=== PATIENT | male | born 1950 | race Caucasian/White ===

== ENCOUNTER → 2019-08-16 | Outpatient (CLI) | payer MEDICARE, OTHER ==
--- NOTE | 2019-08-16 15:04 | XR ---
EXAMINATION TYPE: XR chest 2V DATE OF EXAM: 08/16/2019 COMPARISON: NONE TECHNIQUE: PA and lateral views submitted. HISTORY: Preop knee surgery FINDINGS: There is bibasilar subsegmental consolidation. Heart size is prominent. No overt failure or pneumotho rax. Degenerative change vertebral column with postsurgical change involving the thoracolumbar juncti on. Suggestion of previous vertebroplasty. IMPRESSION: 1. Bibasilar infiltrate or atelectasis.
== END | disposition home or self-care (01) ==
LOC: RADXRMAIN 14:19
PROVIDERS: ATTEND Orthopaedic Surgery
DX: Z01.810 Encounter for preprocedural cardiovascular examination (principal); Z01.812 Encounter for preprocedural laboratory examination
CPT/HCPCS: 71046

== ENCOUNTER → 2019-10-03 | Outpatient (CLI) | payer MEDICARE, OTHER ==
--- NOTE | 2019-10-03 14:19 | US ---
EXAMINATION TYPE: US venous doppler duplex LE RT DATE OF EXAM: 10/03/2019 1:44 PM COMPARISON: NONE CLINICAL HISTORY: R60.0 LOCALIZED EDEMA. Right leg pain following knee replacement 1 week ago SIDE PERFORMED: Right TECHNIQUE: The lower extremity deep venous system is examined utilizing real time linear array sonog lloyd with graded compression, doppler sonography and color-flow sonography. VESSELS IMAGED: External Iliac Vein (EIV) Common Femoral Vein Deep Femoral Vein Greater Saphenous Vein * Femoral Vein Popliteal Vein Small Saphenous Vein * Proximal Calf Veins (* superficial vessels) Grayscale, color doppler, spectral doppler imaging performed of the deep veins of the right lower ext remity. There is normal flow, compressibility, vascular waveforms. 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 No sonographic evidence of deep venous thrombosis within the right lower chimney. 2. Complex 4.8 cm right popliteal fossa cyst.
== END | disposition home or self-care (01) ==
LOC: RADUSWWP 12:47
PROVIDERS: ATTEND Orthopaedic Surgery
DX: R60.0 Localized edema (principal)

== ENCOUNTER → 2020-02-19 | Outpatient (CLI) | payer MEDICARE, OTHER ==
[2020-02-19 11:13] LABS: Basophils % (A) 1 %; Eosinophils # (A) 0.1 k/uL (0-0.7); Eosinophils % (A) 2 %; HCT 48.6 % (39.0-53.0); HGB 15.6 gm/dL (13.0-17.5); Lymphocytes # (A) 0.9 k/uL (1.0-4.8); Lymphocytes % (A) 17 %; MCH 31.1 pg (25.0-35.0); MCV 97.1 fL (80.0-100.0); Monocytes # (A) 0.3 k/uL (0-1.0); Monocytes % (A) 6 %; Neutrophils # (A) 3.7 k/uL (1.3-7.7); Neutrophils % (A) 73 %; Platelet Count 169 k/uL (150-450); RBC 5.01 m/uL (4.30-5.90); RDW 13.7 % (11.5-15.5); WBC 5.1 k/uL (3.8-10.6)
[2020-02-19 15:48] LABS: African American GFR (CKD) 105.6 (60.0-200.0); Albumin 4.5 g/dL (3.80-4.90); Albumin/Globulin Ratio 2.25 (1.60-3.17); Anion Gap 8.7 mmol/L (4.00-12.00); BUN/Creat Ratio 21.25 Ratio (12.00-20.00); Calcium 9.6 mg/dL (8.7-10.3); Carbon Dioxide 27.3 mmol/L (21.6-31.8); Chol/HDL Ratio 1.95; LDL Cholesterol,Calculated 45.8 mg/dL (0.0-131.0); Non-African American GFR(CKD) 91.1 (60.0-200.0); Potassium 4.5 mmol/L (3.5-5.5); Total Bilirubin 0.8 mg/dL (0.2-1.2); Total Protein 6.5 g/dL (6.2-8.2); VLDL Calculation 15.2 mg/dL (5.00-40.00)
== END | disposition home or self-care (01) ==
LOC: LABWHC1 10:45
PROVIDERS: ATTEND Physician Assistant
DX: I10 Essential (primary) hypertension (principal); E11.65 Type 2 diabetes mellitus with hyperglycemia; E78.2 Mixed hyperlipidemia; R97.20 Elevated prostate specific antigen [PSA]; E78.5 Hyperlipidemia, unspecified
CPT/HCPCS: 36415; 80053; 80061; 83036; 84153; 85025

== ENCOUNTER → 2020-10-13 | Outpatient (CLI) | payer MEDICARE, OTHER ==
--- NOTE | 2020-10-13 16:26 | MR ---
EXAMINATION TYPE: MR lumbar spine wo con DATE OF EXAM: 10/13/2020 COMPARISON: NONE HISTORY: Intervertebral disc degeneration per order. Low back pain for 2.5 years per patient. TECHNIQUE: Multiplanar, multisequence imaging of the lumbar spine is performed without IV contrast. FINDINGS: Sagittal images of the lumbar spine show artifact from vertebral plasty L2 level where ther e is [id number] height loss. There is artifact from posterior fusion hardware at the L1-L3 leve ls. Slight posterior 3 mm retropulsion of the superior L2 vertebra to the anterior spinal canal noted sagittal imaging for reference. There is slight grade 1 retrolisthesis L2 on L3, L3 on L4, and L4 an d L5. Multilevel disc desiccation. Moderate to advanced disc space narrowing L4-L5 level greatest lef t aspect. Mild to moderate multilevel anterior spurring The conus medullaris is normal in position an d the mid L1 level. The bone marrow signal intensity is within normal limits. Axial images at T12-L1 level show artifact from surgical hardware otherwise are unremarkable. Axial images at L1-L2 level are suboptimal due to more prominent artifact from surgical hardware. Axi al images L2-L3 level similar to the L1-L2 level. Axial images at the L3-L4 level show spondylolisthesis with mild/moderate facet arthropathy bilateral ly. There is some artifact from surgical hardware. There is mild/moderate lobulated broad disc bulge mildly effaces the anterior thecal sac. There is moderate right and mild left-sided inferior neural f oraminal narrowing. There is however left lateral recess narrowing due to eccentric herniation sagitt al image 7. Encroachment on the extraforaminal right L3 nerve difficulty exclude axial image 13 and s agittal image 13 along inferior margin. Axial images at the L4-L5 level shows subtle spondylolisthesis. There is moderate facet arthropathy a nd ligamentum flavum hypertrophy. There is left paracentral spur disc complex minimally effaces the a nterior thecal sac. There is moderate left and mild right-sided neural foraminal narrowing. Axial images of the L5-S1 level show moderate to advanced facet arthropathy bilaterally. There is eff acement of the left lateral thecal sac encroaching near the central left S1 nerve on axial image 4. T here is mild/moderate broad-based posterior disc protrusion with right foraminal disc protrusion comp onent encroaching along inferior margin right L5 nerve sagittal image 13. Left-sided neural foramina is patent. A round 1.2 cm hyperintense lesion left kidney measures 23 favor simple thin-walled cyst. IMPRESSION: Multilevel spondylolisthesis and degenerative changes greatest at L3-L4 through the L5-S1 levels as detailed above.
== END | disposition home or self-care (01) ==
LOC: RADMRIMAIN 12:50
PROVIDERS: ATTEND Neurological Surgery
DX: M43.16 Spondylolisthesis, lumbar region (principal); M43.17 Spondylolisthesis, lumbosacral region
CPT/HCPCS: 72148

== ENCOUNTER 2023-02-01 18:29 | Emergency (ER) | payer MEDICARE, OTHER ==
[2023-02-01] MEDS ORDERED: KETOROLAC 15 MG/ML 1 ML VIAL IVP STA (19:25)
[2023-02-01] MEDS ORDERED: ORPHENADRINE 30 MG/ML 2 ML VIAL IVP STA (19:25)
--- NOTE | 2023-02-01 20:01 | ED ---
Back Pain HPI - General Chief Complaint: Back Pain/Injury Stated Complaint: back pain Time Seen by Provider: 02/01/23 19:04 Source: patient, RN notes reviewed Limitations: no limitations - History of Present Illness Initial Comments: 72-year-old male presents emergency Department chief complaint of low back pain. Patient states she's had prior surgery including rods, fusion of his lumbar spine. Patient states he has an appointment with Dr. Slater coming up. Patient states pain and worsen her last week. He denies any bowel, bladder incontinence or retention. 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 Patient states blood sugar was mildly elevated today. He states that he has intermittent sharp stabbing type pain. Denies any weakness of his lower extremity but states it's worse with certain movements. - Related Data Home Medications Medication Instructions Recorded Confirmed Albuterol Inhaler [Ventolin Hfa 2 puff INHALATION RT-Q4H PRN 02/01/23 02/01/23 Inhaler] Albuterol Nebulized [Ventolin 2.5 mg INHALATION RT-Q6H PRN 02/01/23 02/01/23 Nebulized] Aspirin EC [Ecotrin] 325 mg PO HS 02/01/23 02/01/23 Atorvastatin [Lipitor] 40 mg PO HS 02/01/23 02/01/23 Butalbital/Aspirin/Caffeine 1 cap PO BID PRN 02/01/23 02/01/23 [Ylpgyqmszc-ADV-Zcbwvvvm Cap 50-325-40] Doxycycline Hyclate 100 mg PO BID 02/01/23 02/01/23 Finasteride [Proscar] 5 mg PO DAILY 02/01/23 02/01/23 Insulin Glargine,Hum.rec.anlog 6 - 20 units SQ HS 02/01/23 02/01/23 [Lantus Solostar Pen] Metoprolol Succinate (ER) [Toprol 50 mg PO DAILY 02/01/23 02/01/23 Xl] Montelukast [Singulair] 10 mg PO HS 02/01/23 02/01/23 Multivit-Min/FA/Lycopen/Lutein 1 tab PO DAILY 02/01/23 02/01/23 [Centrum Silver Men Tablet] Nitroglycerin Sl Tabs [Nitrostat] 0.4 mg SUBLINGUAL Q5M PRN 02/01/23 02/01/23 Tamsulosin [Flomax] 0.4 mg PO DAILY 02/01/23 02/01/23 Topiramate [Topamax] 25 mg PO DAILY 02/01/23 02/01/23 Zolpidem [Ambien] 5 mg PO HS PRN 02/01/23 02/01/23 lisinopriL [Prinivil] 20 mg PO HS 02/01/23 02/01/23 metFORMIN HCL ER [Glucophage XR] 500 mg PO BID 02/01/23 02/01/23 rOPINIRole HCL [Requip] 2 mg PO BID 02/01/23 02/01/23 rOPINIRole HCL [Requip] 2 mg PO HS PRN 02/01/23 02/01/23 traZODone HCL [Desyrel] 50 mg PO HS PRN 02/01/23 02/01/23 Previous Rx's Medication Instructions Recorded HYDROcodone/APAP 5-325MG [Hollis 5] 1 each PO Q6HR PRN #12 tab 02/01/23 Allergies Allergy/AdvReac Type Severity Reaction Status Date / Time No Known Allergies Allergy Verified 02/01/23 21:04 Review of Systems ROS Statement: Those systems with pertinent positive or pertinent negative responses have been documented in the HPI. ROS Other: All systems not noted in ROS Statement are negative. Past Medical History Past Medical History: Asthma, Coronary Artery Disease (CAD), Chest Pain / Angina, Hyperlipidemia, Hypertension Additional Past Medical History / Comment(s): partial left lung collaspe History of Any Multi-Drug Resistant Organisms: None Reported Past Surgical History: Heart Catheterization, Heart Catheterization With Stent, Joint Replacement, Orthopedic Surgery Additional Past Surgical History / Comment(s): lamenectomy, carpal tunnel, cat aracts Past Psychological History: No Psychological Hx Reported Smoking Status: Current every day smoker Past Alcohol Use History: None Reported Past Drug Use History: None Reported General Exam Limitations: no limitations General appearance: alert, in no apparent distress Head exam: Present: atraumatic, normocephalic, normal inspection Eye exam: Present: normal appearance, PERRL, EOMI. Absent: scleral icterus, conjunctival injection, periorbital swelling ENT exam: Present: normal exam, normal oropharynx, mucous membranes moist Neck exam: Present: normal inspection, full ROM. Absent: tenderness, meningismus, lymphadenopathy Respiratory exam: Present: normal lung sounds bilaterally. Absent: respiratory distress, wheezes, rales, rhonchi, stridor Cardiovascular Exam: Present: regular rate, normal rhythm, normal heart sounds. Absent: systolic murmur, diastolic murmur, rubs, gallop, clicks GI/Abdominal exam: Present: soft, normal bowel sounds. Absent: distended, tenderness, guarding, rebound, rigid Extremities exam: Present: normal inspection, full ROM, normal capillary refill, other (lower extremity pulses equal bilaterally). Absent: tenderness, pedal edema, joint swelling, calf tenderness Back exam: Present: tenderness, muscle spasm, paraspinal tenderness, vertebral tenderness. Absent: full ROM Neurological exam: Present: alert, oriented X3, CN II-XII intact, reflexes normal. Absent: motor sensory deficit Course Vital Signs 02/01/23 02/01/23 02/01/23 18:31 20:50 21:37 Temperature 98.4 F Pulse Rate 70 Respiratory 20 Rate Blood Pressure 190/100 160/100 129/82 O2 Sat by Pulse 96 Oximetry Medical Decision Making - Medical Decision Making Was pt. sent in by a medical professional or institution (, PA, HOT [employer]ER, urgent care, hospital, or halfway...) When possible be specific @ -No Did you speak to anyone other than the patient for history (EMS, parent, family, police, friend...)? What history was obtained from this source @ -No Did you review nursing and triage notes (agree or disagree)? Why? @ -I reviewed and agree with nursing and triage notes Were old charts reviewed (outside hosp., previous admission, EMS record, old EKG, old radiological studies, urgent care reports/EKG's, halfway records)? Report findings @ -No old charts were reviewed Differential Diagnosis (chest pain, altered mental status, abdominal pain women, abdominal pain men, vaginal bleeding, weakness, fever, dyspnea, syncope, headache, dizziness, GI bleed, back pain, seizure, CVA, palpatations, mental health, musculoskeletal)? @ -Differential Back Pain: Strain, zoster, cauda equina syndrome, epidural abscess, vertebral osteomyelitis, discitis, fracture, subluxation, disc herniation, DJD, spinal stenosis, dissection, AAA, pancreatitis, peptic ulcer disease, pyelonephritis, kidney stone, this is not meant to be an all-inclusive list. EKG interpreted by me (3pts min.). @ -None X-rays interpreted by me (1pt min.). @ -X-ray lumbar spine shows postsurgical changes, degenerative changes noted, no acute fracture or osseous lesions CT interpreted by me (1pt min.). @ -None done U/S interpreted by me (1pt. min.). @ -None done What testing was considered but not performed or refused? (CT, X-rays, U/S, labs)? Why? @ -None What meds were considered but not given or refused? Why? @ -None Did you discuss the management of the patient with other professionals (professionals i.e. , PA, H[employer]ER, lab, RT, psych nurse, social work administrator, planning specialist, teacher, tactical debriefer officer, case advocate)? Give summary @ -No Was smoking cessation discussed for >3mins.? @ -No Was critical care preformed (if so, how long)? @ -No Were there social determinants of health that impacted care today? How? (Homelessness, low income, unemployed, alcoholism, drug addiction, transportation, low edu. Level, literacy, decrease access to med. care, alf, rehab)? @ -No Was there de-escalation of care discussed even if they declined (Discuss DNR or withdrawal of care, Hospice)? DNR status @ -No What co-morbidities impacted this encounter? (DM, HTN, Smoking, COPD, CAD, Cancer, CVA, ARF, Chemo, Hep., AIDS, mental health diagnosis, sleep apnea, morbid obesity)? @ -None Was patient admitted / discharged? Hospital course, mention meds given and route, prescriptions, significant lab abnormalities, going to OR and other pertinent info. @ -Discharge patient has lumbar The symptoms patient did have lab work which showed mild hyperglycemia no patient had recent cortisone injection patient's CRP was 4 not significantly elevated patient is afebrile patient's found to be hypertensive though patient was in a large amount of pain. Patient was discharged with pain control and follow-up with Dr. Slater as scheduled appointment or sooner return parameters were discussed Undiagnosed new problem with uncertain prognosis? @ -No Drug Therapy requiring intensive monitoring for toxicity (Heparin, Nitro, Insulin, Cardizem)? @ -No Were any procedures done? @ -No Diagnosis/symptom? @ -Lumbar radiculopathy Acute, or Chronic, or Acute on Chronic? @ -Acute on chronic Uncomplicated (without systemic symptoms) or Complicated (systemic symptoms)? @ -Uncomplicated Side effects of treatment? @ -No Exacerbation, Progression, or Severe Exacerbation? @ -No Poses a threat to life or bodily function? How? (Chest pain, [place], [place], pneumonia, PE, COPD, DKA, ARF, appy, cholecystitis, CVA, Diverticulitis, Homicidal, Suicidal, threat to staff... and all critical care pts) @ -No - Lab Data Result diagrams: 02/01/23 19:46 02/01/23 19:46 Lab Results 02/01/23 02/01/23 02/01/23 Range/Units 19:46 19:46 19:46 WBC 6.3 (3.8-10.6) k/uL RBC 4.87 (4.30-5.90) m/uL Hgb 16.0 (13.0-17.5) gm/dL Hct 48.0 (39.0-53.0) % MCV 98.5 (80.0-100.0) fL MCH 32.8 (25.0-35.0) pg MCHC 33.3 (31.0-37.0) g/dL RDW 12.6 (11.5-15.5) % Plt Count 189 (150-450) k/uL MPV 8.0 Neutrophils % 69 % Lymphocytes % 22 % Monocytes % 6 % Eosinophils % 2 % Basophils % 1 % Neutrophils # 4.3 (1.3-7.7) k/uL Lymphocytes # 1.4 (1.0-4.8) k/uL Monocytes # 0.4 (0-1.0) k/uL Eosinophils # 0.1 (0-0.7) k/uL Basophils # 0.0 (0-0.2) k/uL Sodium 139 (137-145) mmol/L Potassium 4.7 (3.5-5.1) mmol/L Chloride 107 (98-107) mmol/L Carbon Dioxide 25 (22-30) mmol/L Anion Gap 7 mmol/L BUN 18 (9-20) mg/dL Creatinine 0.74 (0.66-1.25) mg/dL Est GFR (CKD-EPI)AfAm >90 (>60 ml/min/1.73 sqM) Est GFR (CKD-EPI)NonAf >90 (>60 ml/min/1.73 sqM) Glucose 178 H (74-99) mg/dL Calcium 9.3 (8.4-10.2) mg/dL C-Reactive Protein 4.0 H (<1.0) mg/dL Urine Color Yellow Urine Appearance Clear (Clear) Urine pH 6.5 (5.0-8.0) Ur Specific [place] 1.022 (1.001-1.035) Urine Protein Negative (Negative) Urine Glucose (UA) 4+ H (Negative) Urine Ketones Negative (Negative) Urine Blood Negative (Negative) Urine Nitrite Negative (Negative) Urine Bilirubin Negative (Negative) Urine Urobilinogen 2.0 (<2.0) mg/dL Ur Leukocyte Esterase Negative (Negative) Disposition Clinical Impression: Lumbar radiculopathy Disposition: HOME SELF-CARE Condition: Stable Instructions (If sedation given, give patient instructions): Acute Low Back Pa in (ED) Additional Instructions: Please return to the Emergency Department if symptoms worsen or any other concerns. Prescriptions: HYDROcodone/APAP 5-325MG [Hollis 5] 1 each PO Q6HR PRN #12 tab PRN Reason: Pain Is patient prescribed a controlled substance at d/c from ED?: No Referrals: Nonstaff,Physician [REFERRING] - 1-2 days Gil Patel DO [Family Provider] - 1-2 days Time of Disposition: 22:03
[2023-02-01 20:04] LABS: Basophils % (A) 1 %; Eosinophils # (A) 0.1 k/uL (0-0.7); Eosinophils % (A) 2 %; Lymphocytes # (A) 1.4 k/uL (1.0-4.8); Lymphocytes % (A) 22 %; MCH 32.8 pg (25.0-35.0); MCHC 33.3 g/dL (31.0-37.0); MCV 98.5 fL (80.0-100.0); Monocytes # (A) 0.4 k/uL (0-1.0); Monocytes % (A) 6 %; Neutrophils # (A) 4.3 k/uL (1.3-7.7); Neutrophils % (A) 69 %; Platelet Count 189 k/uL (150-450); RBC 4.87 m/uL (4.30-5.90); RDW 12.6 % (11.5-15.5); WBC 6.3 k/uL (3.8-10.6)
[2023-02-01 20:07] LABS: Appearance,Urine Clear (Clear); Bilirubin,Urine Negative (Negative); Blood,Urine Negative (Negative); Color,Urine Yellow; Glucose,Urine (UA) 4+ (Negative); Ketones,Urine Negative (Negative); Leukocyte Esterase,Urine Negative (Negative); Nitrite,Urine Negative (Negative); PH, Urine 6.5 (5.0-8.0); Protein,Urine Negative (Negative); Specific Gravity,Urine 1.022 (1.001-1.035)
[2023-02-01 20:37] LABS: African American GFR (CKD) >90 (>60 ml/min/1.73 sqM); Anion Gap 7 mmol/L; Blood Urea Nitrogen 18 mg/dL (9-20); Calcium 9.3 mg/dL (8.4-10.2); Carbon Dioxide 25 mmol/L (22-30); Chloride 107 mmol/L (98-107); Glucose 178 mg/dL (74-99); Non-African American GFR(CKD) >90 (>60 ml/min/1.73 sqM); Potassium 4.7 mmol/L (3.5-5.1); Sodium 139 mmol/L (137-145)
--- NOTE | 2023-02-01 20:38 | XR ---
EXAMINATION TYPE: XR lumbosacral spine min 4V DATE OF EXAM: 02/01/2023 8:29 PM INDICATION: Patient age:Male; 72 years old; Reason for study: pain; COMPARISON: MRI 10/13/2020 TECHNIQUE: Frontal, lateral , bilateral oblique and coned in L5-S1 lateral views of the spine. FINDINGS: Postsurgical changes to the spine L1 and L3 with hardware intact. Vertebroplasty changes to L2. There is degeneration changes throughout the spine with osteophyte formation disc space narrowin g. Facet joint arthropathy seen throughout the spine. No evidence for acute fracture. No evidence of loss of vertebral body height is seen. There is straightened alignment of the lumbar vertebral bodies . Atherosclerosis of the arterial vasculature. Varying degrees of neural foraminal stenosis throughou t the visualized spine. IMPRESSION: 1. Postsurgical changes without evidence for acute fracture. 2. Moderate multilevel disc degeneration.
[2023-02-01] MEDS ORDERED: ONDANSETRON 4 MG/2 ML VIAL IVP STA (21:18)
[2023-02-01] MEDS ORDERED: HYDROmorphone 0.5 MG/0.5 ML SYRINGE IVP STA (21:18)
[2023-02-01 22:18] VITALS: BP 127/82; PULSE 76; RESP 14; TEMP 98.2
== END 2023-02-01 22:25 | disposition home or self-care (01) ==
LOC: EC 18:29
DX: M54.16 Radiculopathy, lumbar region (principal); J45.909 Unspecified asthma, uncomplicated; I25.10 Atherosclerotic heart disease of native coronary artery without angina pectoris; I10 Essential (primary) hypertension; E78.5 Hyperlipidemia, unspecified; F17.200 Nicotine dependence, unspecified, uncomplicated; Z79.899 Other long term (current) drug therapy; Z79.82 Long term (current) use of aspirin; Z79.4 Long term (current) use of insulin
CPT/HCPCS: 36415; 80048; 85025; 86140; 81003; 72110; 99284; 96374; 96375 ×3; J2360; J2405; J1885; J1170

== ENCOUNTER 2023-09-12 14:05 | Emergency (ER) | payer MEDICARE, OTHER ==
--- NOTE | 2023-09-12 14:28 | ED ---
General Adult HPI - General Source: patient, RN notes reviewed Mode of arrival: ambulatory Limitations: no limitations <Chaka Eng - Last Filed: 09/12/23 14:27> <Radha Francisco - Last Filed: 09/16/23 01:31> - General Chief complaint: Back Pain/Injury Stated complaint: back pain Time Seen by Provider: 09/12/23 14:27 - History of Present Illness Initial comments: 73-year-old male presents emergency Department with chief complaint of back pain. Patient's been having increased back pain since yesterday. He states he has history of surgery in his lumbar spine. Patient denies any new traumatic back injuries. (Chaka Eng) 73-year-old male presents emergency department chief of low back pain. He states that this has been worsening over the past 2 days. He states that he does have history of chronic pain and has had surgery on his lumbar spine in 2016. He states that this pain is in the right side of his back and radiates down his right leg. He states that this is worse when he walks. He denies fever, chills, loss of bowel or bladder function, saddle anesthesia. (Radha Francisco) - Related Data Home Medications Medication Instructions Recorded Confirmed Albuterol Inhaler [Ventolin Hfa 2 puff INHALATION RT-Q4H PRN 02/01/23 02/01/23 Inhaler] Albuterol Nebulized [Ventolin 2.5 mg INHALATION RT-Q6H PRN 02/01/23 02/01/23 Nebulized] Aspirin EC [Ecotrin] 325 mg PO HS 02/01/23 02/01/23 Atorvastatin [Lipitor] 40 mg PO HS 02/01/23 02/01/23 Butalbital/Aspirin/Caffeine 1 cap PO BID PRN 02/01/23 02/01/23 [Cuqblbbjln-JGI-Jlddkfqi Cap 50-325-40] Doxycycline Hyclate 100 mg PO BID 02/01/23 02/01/23 Finasteride [Proscar] 5 mg PO DAILY 02/01/23 02/01/23 Insulin Glargine,Hum.rec.anlog 6 - 20 units SQ HS 02/01/23 02/01/23 [Lantus Solostar Pen] Metoprolol Succinate (ER) [Toprol 50 mg PO DAILY 02/01/23 02/01/23 Xl] Montelukast [Singulair] 10 mg PO HS 02/01/23 02/01/23 Mv-Min/Folic/K1/Lycopen/Lutein 1 tab PO DAILY 02/01/23 02/01/23 [Centrum Silver Men Tablet] Nitroglycerin Sl Tabs [Nitrostat] 0.4 mg SUBLINGUAL Q5M PRN 02/01/23 02/01/23 Tamsulosin [Flomax] 0.4 mg PO DAILY 02/01/23 02/01/23 Topiramate [Topamax] 25 mg PO DAILY 02/01/23 02/01/23 Zolpidem [Ambien] 5 mg PO HS PRN 02/01/23 02/01/23 lisinopriL [Prinivil] 20 mg PO HS 02/01/23 02/01/23 metFORMIN HCL ER [Glucophage XR] 500 mg PO BID 02/01/23 02/01/23 rOPINIRole HCL [Requip] 2 mg PO BID 02/01/23 02/01/23 rOPINIRole HCL [Requip] 2 mg PO HS PRN 02/01/23 02/01/23 traZODone HCL [Desyrel] 50 mg PO HS PRN 02/01/23 02/01/23 Previous Rx's Medication Instructions Recorded HYDROcodone/APAP 5-325MG [[place] 5] 1 each PO Q6HR PRN #12 tab 02/01/23 HYDROcodone/APAP 10-325MG [[place] 1 tab PO Q6H PRN #12 tab 09/12/23 10-325] Lidocaine 5% Patch [Lidoderm 5% 1 patch TOPICAL DAILY #30 patch 09/12/23 Patch] Allergies Allergy/AdvReac Type Severity Reaction Status Date / Time No Known Allergies Allergy Verified 09/12/23 14:29 Review of Systems ROS Other: All systems not noted in ROS Statement are negative. <Chaka Eng - Last Filed: 09/12/23 14:27> ROS Other: All systems not noted in ROS Statement are negative. <Radha Francisco - Last Filed: 09/16/23 01:31> ROS Statement: Those systems with pertinent positive or pertinent negative responses have been documented in the HPI. Past Medical History Past Medical History: Asthma, Coronary Artery Disease (CAD), Chest Pain / Angina, Hyperlipidemia, Hypertension Additional Past Medical History / Comment(s): partial left lung collaspe History of Any Multi-Drug Resistant Organisms: None Reported Past Surgical History: Heart Catheterization, Heart Catheterization With Stent, Joint Replacement, Orthopedic Surgery Additional Past Surgical History / Comment(s): lamenectomy, carpal tunnel, cataracts Past Psychological History: No Psychological Hx Reported Smoking Status: Current every day smoker Past Alcohol Use History: None Reported Past Drug Use History: None Reported <Chaka Eng - Last Filed: 09/12/23 14:27> General Exam <Chaka Eng - Last Filed: 09/12/23 14:27> Limitations: no limitations General appearance: alert, in no apparent distress Head exam: Present: atraumatic, normocephalic, normal inspection Eye exam: Present: normal appearance, PERRL, EOMI. Absent: scleral icterus, conjunctival injection, periorbital swelling ENT exam: Present: normal exam, mucous membranes moist Neck exam: Present: normal inspection. Absent: tenderness, meningismus, lymphadenopathy Respiratory exam: Present: normal lung sounds bilaterally. Absent: respiratory distress, wheezes, rales, rhonchi, stridor Cardiovascular Exam: Present: regular rate, normal rhythm, normal heart sounds. Absent: systolic murmur, diastolic murmur, rubs, gallop, clicks GI/Abdominal exam: Present: soft, normal bowel sounds. Absent: distended, tend erness, guarding, rebound, rigid Extremities exam: Present: normal inspection, full ROM, normal capillary refill, other (5/5 strength in lower extemities). Absent: tenderness, pedal edema, joint swelling, calf tenderness Back exam: Present: full ROM, paraspinal tenderness Neurological exam: Present: alert, oriented X3 Psychiatric exam: Present: normal affect, normal mood Skin exam: Present: warm, dry, intact, normal color. Absent: rash <Radha Francisco - Last Filed: 09/16/23 01:31> - General Exam Comments Initial Comments: Visual Physical Exam Vital signs reviewed General: Well-appearing, nontoxic, no acute distress. Head: Normocephalic, atraumatic Eyes: PERRLA, EOMI ENT: Airway patent Chest: Nonlabored breathing Skin: No visual rash, normal skin tone Neuro: Alert and oriented 3 Musculoskeletal: No gross abnormalities (Chaka Eng) Course Vital Signs 09/12/23 09/12/23 09/12/23 14:26 15:53 17:06 Temperature 98 F Pulse Rate 63 58 L 58 L Respiratory 16 18 Rate Blood Pressure 165/89 189/94 145/85 O2 Sat by Pulse 95 94 L 97 Oximetry 09/12/23 19:48 Temperature 98.1 F Pulse Rate 62 Respiratory 18 Rate Blood Pressure 151/86 O2 Sat by Pulse 93 L Oximetry Medical Decision Making <Chaka Eng - Last Filed: 09/12/23 14:27> - Lab Data Result diagrams: 09/12/23 15:44 09/12/23 15:44 <Radha Francisco - Last Filed: 09/16/23 01:31> - Medical Decision Making I performed a quick note portion of this chart signed Chaka Eng PA-C (Chaka Eng) Was pt. sent in by a medical professional or institution ([facility], [facility], urgent care, hospital, or fdc...) When possible be specific @ -[No] Did you speak to anyone other than the patient for history (EMS, parent, family, police, friend...)? What history was obtained from this source @ -[No] Did you review nursing and triage notes (agree or disagree)? Why? @ -[I reviewed and agree with nursing and triage notes] Were old charts reviewed (outside hosp., previous admission, EMS record, old EKG, old radiological studies, urgent care reports/EKG's, fdc records)? Report findings @ -[No old charts were reviewed] Differential Diagnosis (chest pain, altered mental status, abdominal pain women, abdominal pain men, vaginal bleeding, weakness, fever, dyspnea, syncope, headache, dizziness, GI bleed, back pain, seizure, CVA, palpatations, mental health, musculoskeletal)? @ -[Differential Back Pain: Strain, zoster, cauda equina syndrome, epidural abscess, vertebral osteo myelitis, discitis, fracture, subluxation, disc herniation, DJD, spinal stenosis, dissection, AAA, pancreatitis, peptic ulcer disease, pyelonephritis, kidney stone, this is not meant to be an all-inclusive list.] EKG interpreted by me (3pts min.). @ -[none] X-rays interpreted by me (1pt min.). @ -[X-ray lumbar spine shows postsurgical changes stable, moderate multilevel disc degeneration X-ray hip shows no acute process] CT interpreted by me (1pt min.). @ -[None done] U/S interpreted by me (1pt. min.). @ -[None done] What testing was considered but not performed or refused? (CT, X-rays, U/S, labs)? Why? @ -[None] What meds were considered but not given or refused? Why? @ -[None] Did you discuss the management of the patient with other professionals (professionals i.e. DrAsaf, PA, [facility], lab, RT, psych nurse, protective services social worker, counseling program leader, teacher, radiation officer, housing case manager)? Give summary @ -[No] Was smoking cessation discussed for >3mins.? @ -[No] Was critical care preformed (if so, how long)? @ -[No] Were there social determinants of health that impacted care today? How? (Homelessness, low income, unemployed, alcoholism, drug addiction, transportation, low edu. Level, literacy, decrease access to med. care, intermediate, rehab)? @ -[No] Was there de-escalation of care discussed even if they declined (Discuss DNR or withdrawal of care, Hospice)? DNR status @ -[No] What co-morbidities impacted this encounter? (DM, HTN, Smoking, COPD, CAD, Cancer, CVA, ARF, Chemo, Hep., AIDS, mental health diagnosis, sleep apnea, morbid obesity)? @ -[None] Was patient admitted / discharged? Hospital course, mention meds given and route, prescriptions, significant lab abnormalities, going to OR and other pertinent info. @ -[discharged. patient presented to the emergency department with chief complaint of back pain. He has a history of chronic back pain. He states that this is similar in character to pain he has experienced in the past. He is not having any red flag symptoms at this time. He follows with Dr. Patel and his neurologist for his back pain. He does not currently take anything for pain. X- ray lumbar spine shows postsurgical changes stable, moderate multilevel disc degeneration, X-ray hip shows no acute process. Patient given mediation for pain control which helped. He is able to ambulate. Patient will be discharged home with follow up to his back surgeon. Patient understanding and agreeable. Return precautions discussed. Patient stable at time of discharge. Case discussed with Dr. Ibarra] Undiagnosed new problem with uncertain prognosis? @ -[No] Drug Therapy requiring intensive monitoring for toxicity (Heparin, Nitro, Insulin, Cardizem)? @ -[No] Were any procedures done? @ -[No] Diagnosis/symptom? @ -[back pain] Acute, or Chronic, or Acute on Chronic? @ -[chronic] Uncomplicated (without systemic symptoms) or Complicated (systemic symptoms)? @ -[uncomplicated] Side effects of treatment? @ -[No] Exacerbation, Progression, or Severe Exacerbation? @ -[No] Poses a threat to life or bodily function? How? (Chest pain, USA, VT, pneumonia, PE, COPD, DKA, ARF, appy, cholecystitis, CVA, Diverticulitis, Homicidal, Suicidal, threat to staff... and all critical care pts) @ -[No] (Radha Francisco) - Lab Data Lab Results 09/12/23 09/12/23 09/12/23 Range/Units 15:44 15:44 15:44 WBC 9.0 (3.8-10.6) k/uL RBC 4.94 (4.30-5.90) m/uL Hgb 16.8 (13.0-17.5) gm/dL Hct 49.5 (39.0-53.0) % MCV 100.1 H (80.0-100.0) fL MCH 34.0 (25.0-35.0) pg MCHC 34.0 (31.0-37.0) g/dL RDW 13.4 (11.5-15.5) % Plt Count 157 (150-450) k/uL MPV 8.0 Neutrophils % 82 % Lymphocytes % 11 % Monocytes % 5 % Eosinophils % 1 % Basophils % 0 % Neutrophils # 7.4 (1.3-7.7) k/uL Lymphocytes # 1.0 (1.0-4.8) k/uL Monocytes # 0.4 (0-1.0) k/uL Eosinophils # 0.1 (0-0.7) k/uL Basophils # 0.0 (0-0.2) k/uL Sodium 137 (137-145) mmol/L Potassium 4.5 (3.5-5.1) mmol/L Chloride 105 (98-107) mmol/L Carbon Dioxide 21 L (22-30) mmol/L Anion Gap 11 mmol/L BUN 15 (9-20) mg/dL Creatinine 0.64 L (0.66-1.25) mg/dL Est GFR (CKD-EPI)AfAm >90 (>60 ml/min/1.73 sqM) Est GFR (CKD-EPI)NonAf >90 (>60 ml/min/1.73 sqM) Glucose 109 H (74-99) mg/dL Calcium 9.4 (8.4-10.2) mg/dL Total Bilirubin 1.5 H (0.2-1.3) mg/dL AST 25 (17-59) U/L ALT 28 (4-49) U/L Alkaline Phosphatase 111 (38-126) U/L Total Protein 7.1 (6.3-8.2) g/dL Albumin 4.5 (3.5-5.0) g/dL Urine Color Light Yellow Urine Appearance Clear (Clear) Urine pH 5.0 (5.0-8.0) Ur Specific [place] 1.015 (1.001-1.035) Urine Protein Negative (Negative) Urine Glucose (UA) Negative (Negative) Urine Ketones 1+ H (Negative) Urine Blood Negative (Negative) Urine Nitrite Negative (Negative) Urine Bilirubin Negative (Negative) Urine Urobilinogen <2.0 (<2.0) mg/dL Ur Leukocyte Esterase Negative (Negative) Disposition <Chaka Eng - Last Filed: 09/12/23 14:27> Is patient prescribed a controlled substance at d/c from ED?: No <Radha Francisco - Last Filed: 09/16/23 01:31> Clinical Impression: Mechanical back pain Disposition: HOME SELF-CARE Condition: Stable Instructions (If sedation given, give patient instructions): Acute Low Back Pain (ED) Additional Instructions: Please follow up with your neurologist or back surgeon. Return to the emergency department for new or worsening symptoms. Prescriptions: Lidocaine 5% Patch [Lidoderm 5% Patch] 1 patch TOPICAL DAILY #30 patch HYDROcodone/APAP 10-325MG [[place] 10-325] 1 tab PO Q6H PRN #12 tab PRN Reason: pain Referrals: Brendon Mitchell MD [Primary Care Provider] - 1-2 days
--- NOTE | 2023-09-12 15:07 | XR ---
EXAM TYPE: LUMBAR SPINE X RAY SERIES COMPARISON: 02/01/2023 HISTORY: Pain TECHNIQUE: 3 views are submitted. FINDINGS: Postsurgical changes to the spine L1 and L3 with hardware intact. Vertebroplasty changes to L2 with s table chronic compression deformity. There is degeneration changes throughout the spine with osteophy te formation disc space narrowing. There is straightened alignment of the lumbar vertebral bodies. At herosclerosis of the arterial vasculature. Varying degrees of neural foraminal stenosis throughout th e visualized spine. Stable grade 1 anterolisthesis L5-S1. Marked facet arthropathy levels L4-5 and L5 -S1 with suspected foraminal encroachment. IMPRESSION: 1. Postsurgical changes are stable. 2. Moderate multilevel disc degeneration.
[2023-09-12] MEDS ORDERED: KETOROLAC 15 MG/ML 1 ML VIAL IVP STA (15:38)
[2023-09-12] MEDS ORDERED: LIDOCAINE 5% PATCH TOPICAL STA (15:39)
[2023-09-12] MEDS ORDERED: HYDROmorphone 0.5 MG/0.5 ML SYRINGE IVP STA (15:40)
[2023-09-12 15:57] VITALS: RESP 18
[2023-09-12 16:03] LABS: Basophils % (A) 0 %; Eosinophils # (A) 0.1 k/uL (0-0.7); Eosinophils % (A) 1 %; HCT 49.5 % (39.0-53.0); HGB 16.8 gm/dL (13.0-17.5); Lymphocytes % (A) 11 %; MCV 100.1 fL (80.0-100.0); Monocytes # (A) 0.4 k/uL (0-1.0); Monocytes % (A) 5 %; Neutrophils # (A) 7.4 k/uL (1.3-7.7); Neutrophils % (A) 82 %; Platelet Count 157 k/uL (150-450); RBC 4.94 m/uL (4.30-5.90); RDW 13.4 % (11.5-15.5)
[2023-09-12 16:17] LABS: ALT 28 U/L (4-49); AST 25 U/L (17-59); African American GFR (CKD) >90 (>60 ml/min/1.73 sqM); Albumin 4.5 g/dL (3.5-5.0); Alkaline Phosphatase 111 U/L (38-126); Anion Gap 11 mmol/L; Blood Urea Nitrogen 15 mg/dL (9-20); Calcium 9.4 mg/dL (8.4-10.2); Carbon Dioxide 21 mmol/L (22-30); Chloride 105 mmol/L (98-107); Glucose 109 mg/dL (74-99); Non-African American GFR(CKD) >90 (>60 ml/min/1.73 sqM); Potassium 4.5 mmol/L (3.5-5.1); Sodium 137 mmol/L (137-145); Total Bilirubin 1.5 mg/dL (0.2-1.3); Total Protein 7.1 g/dL (6.3-8.2)
[2023-09-12 16:39] LABS: Appearance,Urine Clear (Clear); Bilirubin,Urine Negative (Negative); Blood,Urine Negative (Negative); Color,Urine Light Yellow; Glucose,Urine (UA) Negative (Negative); Ketones,Urine 1+ (Negative); Leukocyte Esterase,Urine Negative (Negative); Nitrite,Urine Negative (Negative); Protein,Urine Negative (Negative); Specific Gravity,Urine 1.015 (1.001-1.035); Urobilinogen,Urine <2.0 mg/dL (<2.0)
[2023-09-12] MEDS ORDERED: HYDROmorphone 1 MG/ML 1 ML SYRINGE IVP STA (16:58)
--- NOTE | 2023-09-12 18:16 | XR ---
EXAMINATION TYPE: XR Hip Complete RT DATE OF EXAM: 09/12/2023 6:13 PM CLINICAL INDICATION:Male, 73 years old with history of pain; COMPARISON: None. TECHNIQUE: XR Hip Complete RT; hip was examined in the frontal and lateral projections and a AP pelvi s. FINDINGS: No evidence for acute process, joint dislocation or significant soft tissue swelling. IMPRESSION: No acute process.
[2023-09-12] MEDS ORDERED: traMADol 50 MG STARTER PACK 3 TAB BTL PO STA (18:45)
[2023-09-12] MEDS ORDERED: DEXAMETHASONE SOD PHOSPHATE 10 MG/ML 1 ML VIAL IVP STA (18:49)
[2023-09-12 20:06] VITALS: BP 151/86; PULSE 62; TEMP 98.1
== END 2023-09-12 19:51 | disposition home or self-care (01) ==
LOC: EC 14:05
DX: M54.9 Dorsalgia, unspecified (principal); J45.909 Unspecified asthma, uncomplicated; I25.10 Atherosclerotic heart disease of native coronary artery without angina pectoris; I10 Essential (primary) hypertension; E78.5 Hyperlipidemia, unspecified; F17.200 Nicotine dependence, unspecified, uncomplicated; Z79.82 Long term (current) use of aspirin; Z79.899 Other long term (current) drug therapy
CPT/HCPCS: 99284 ×2; 96374 ×2; 96375 ×3; 96376 ×2; 36415; 80053; 85025; 81003; 72100; 73502; J1100; J1170 ×2; J1885

== ENCOUNTER → 2023-09-13 | Outpatient (CLI) | payer MEDICARE, OTHER ==
--- NOTE | 2023-09-13 13:08 | US ---
EXAMINATION TYPE: US kidneys/renal and bladder DATE OF EXAM: 09/13/2023 COMPARISON: CLINICAL INDICATION: Male, 73 years old with history of R31.0 GROSS HEMATURIA; Gross hematuria episod es EXAM MEASUREMENTS: Right Kidney: 14.6x5.6x4.5 cm Left Kidney: 12.3x5.1x4.1 cm Right Kidney: complex appearing cystic area inferior medial pole with septation : 2.8x2.5x2.7cm Left Kidney: hydro, small cystic area noted lateral inf/mid region: 0.9x1.0x1.2cm Bladder: wnl Bilateral Jets seen: Yes No nephrolithiasis is seen. The urinary bladder is anechoic. Bilateral ureteral jets are seen. Note is made of a large cyst within the right lobe liver measuring 4.6 x 0.2 x 3.3 cm. IMPRESSION: 1. Complex cyst right kidney. Follow-up exams recommended.
== END | disposition home or self-care (01) ==
LOC: RADUSWWP 12:01
PROVIDERS: ATTEND Urology
DX: N28.1 Cyst of kidney, acquired (principal); R31.0 Gross hematuria
CPT/HCPCS: 76770

== ENCOUNTER → 2023-09-14 | Outpatient (CLI) | payer MEDICARE, OTHER ==
[2023-09-14 11:36] LABS: Appearance,Urine Clear (Clear); Color,Urine Yellow; PH, Urine 6.5 (5.0-8.0); Specific Gravity,Urine 1.015 (1.001-1.035)
[2023-09-14 11:37] LABS: Bilirubin,Urine Negative (Negative); Blood,Urine Negative (Negative); Glucose,Urine (UA) Negative (Negative); Ketones,Urine Negative (Negative); Leukocyte Esterase,Urine Negative (Negative); Nitrite,Urine Negative (Negative); Protein,Urine Negative (Negative); Urobilinogen,Urine <2.0 mg/dL (<2.0)
[2023-09-14 16:22] LABS: Basophils # (A) 0.03 X 10*3/uL (0.00-0.10); Basophils % (A) 0.5 %; Eosinophils # (A) 0.07 X 10*3/uL (0.04-0.35); Eosinophils % (A) 1.1 %; HGB 15.9 d/dL (13.0-17.0); Lymphocytes # (A) 1.42 X 10*3/uL (0.90-5.00); Lymphocytes % (A) 21.7 %; MCH 33.5 pg (27.0-32.0); MCHC 33.8 d/dL (32.0-37.0); MCV 98.9 FL (80.0-97.0); Mean Platelet Volume 10.7 FL (9.5-12.2); Monocytes # (A) 0.57 X 10*3/uL (0.20-1.00); Monocytes % (A) 8.7 %; NRBC Per 100 WBC 0 X 10*3/uL (0.00-0.01); Neutrophils # (A) 4.42 X 10*3/uL (1.80-7.70); Neutrophils % (A) 67.5 %; Platelet Count 182 X 10*3/uL (140-440); RBC 4.75 X 10*6/uL (4.40-5.60); RDW 14.4 % (11.5-14.5); WBC 6.54 X 10*3/uL (4.50-10.00)
[2023-09-14 16:33] LABS: ALT 24 U/L (10-49); AST 16 U/L (14-35); Albumin 4.4 d/dL (3.8-4.9); Alkaline Phosphatase 103 U/L (41-126); BUN/Creat Ratio 18.88 Ratio (12.00-20.00); Blood Urea Nitrogen 15.1 mg/dL (9.0-27.0); Calcium 9.1 mg/dL (8.7-10.3); Carbon Dioxide 23.7 mmol/L (21.6-31.8); Chloride 107 mmol/L (96-109); Chol/HDL Ratio 1.59 Ratio; Globulin 2.1 d/dL (1.6-3.3); Glucose 115 mg/dL (70-110); LDL Cholesterol,Calculated 37.8 mg/dL (0.0-131.0); Magnesium 2.2 mg/dL (1.5-2.4); Potassium 4.3 mmol/L (3.5-5.5); Prostate Specific Antigen 4.16 ng/mL (0.000-6.500); Sodium 141 mmol/L (135-145); Total Bilirubin 0.8 mg/dL (0.3-1.2); Total Protein 6.5 d/dL (6.2-8.2); Uric Acid 5.1 mg/dL (3.7-8.7); VLDL Calculation 12.24 mg/dL (5.00-40.00)
[2023-09-14 19:51] LABS: Urine Creatinine 76.6 mg/dL (39.0-259.0)
== END | disposition home or self-care (01) ==
LOC: LABWHC1 09:53
PROVIDERS: ATTEND Internal Medicine
DX: I10 Essential (primary) hypertension (principal); N40.0 Benign prostatic hyperplasia without lower urinary tract symptoms; E11.9 Type 2 diabetes mellitus without complications; E78.2 Mixed hyperlipidemia; G25.81 Restless legs syndrome
CPT/HCPCS: 36415; 80053; 80061; 81003; 82043; 82306; 82570; 83036; 83735; 84153; 84443; 84550; 85025

== ENCOUNTER → 2023-09-20 | Outpatient (CLI) | payer MEDICARE, OTHER ==
[2023-09-20 12:09] LABS: African American GFR (CKD) >90 (>60 ml/min/1.73 sqM); Blood Urea Nitrogen 11 mg/dL (9-20); Non-African American GFR(CKD) 87 (>60 ml/min/1.73 sqM)
--- NOTE | 2023-09-20 15:18 | CT ---
EXAMINATION TYPE: CT urogram wo/w con DATE OF EXAM: 09/20/2023 COMPARISON: Ultrasound 09/13/2023 HISTORY: 73-year-old male N28.1 renal cyst and R31.0 gross hematuria. TECHNIQUE: Contiguous axial scanning of the abdomen and pelvis performed without and with IV Contrast , patient injected with 100 mL of Isovue 300. Delayed images through the kidneys and bladder were obt ained. Coronal/sagittal reconstructions performed. 3-D reconstructions generated on a dedicated [employer] workstation. CT DLP: 4129.50 mGycm Automated exposure control for dose reduction was used. FINDINGS: The heart is borderline enlarged without pericardial effusion. Bandlike areas of atelectasis or scarr ing at the lung bases. No pleural effusion. There are a couple of hepatic cysts, largest in the mid liver measuring 5.7 cm. Portal venous system is patent. No biliary ductal dilatation. Gallbladder, adrenal glands, spleen, and pancreas within normal limits. Moderate atherosclerotic calcifications abdominal aorta and iliac arteries. There is mild fusiform an eurysm right common iliac artery up to 2.2 cm with noncalcified plaque contributing to moderate steno sis. No dilated small bowel, free fluid, or free air. No mesenteric or retroperitoneal adenopathy. Normal appendix. Left-sided colonic diverticulosis. Mild stool burden. No pericolonic inflammatory ch steven. A few punctate bilateral nonobstructive renal calculi, 2 on either side measuring up to 3 mm on the r ight and 4 mm on the left. Pelvic cysts left kidney measure up to 2.3 cm. Additional scattered small bilateral renal cortical cy sts measuring up to 9 mm. Lobulated cystic lesion at the right lower pole measures 3.0 cm. No enhanci ng thickened internal septa is identified. No enhancing soft tissue nodularity. Symmetric uptake and excretion of contrast from the kidneys. Only the mid to distal third right urete r remains unopacified but no abnormal thickening is seen along its course. Otherwise, no abnormal josafat ling defect within the renal collecting systems or along the opacified ureters. Bladder partially distended but with mild circumferential wall thickening. Prostate gland is enlarged at 5.4 cm wide with soft tissue impressing onto the base of the bladder. Pelvic fluid was. No abnormal fluid collection in the pelvis or pelvic lymphadenopathy. Bones: Previous L2 vertebroplasty change. There is L1-L3 posterior lumbar fusion. Severe hypertrophic facet arthropathy mid to lower lumbar spine. Dictation the lower thoracic and upper lumbar spine. Ba astrup's disease. IMPRESSION: 1. LOBULATED CYST LOWER POLE RIGHT KIDNEY MEASURES 3.0 CM. NO SUSPICIOUS INTERNAL COMPLEXITY APPARENT BY CT. RECOMMEND FOLLOW-UP BY ULTRASOUND IN 6 MONTHS GIVEN THE SEPTATION SEEN BY ULTRASOUND. 2. PUNCTATE BILATERAL NONOBSTRUCTIVE RENAL CALCULI MEASURING UP TO 4 MM. 3. PROSTATOMEGALY AT 5.4 CM WIDE. THERE IS LOBULATED SOFT TISSUE IMPRESSING UPON TO THE BASE OF THE B LADDER LIKELY REPRESENTING BPH. CORRELATE WITH PSA VALUES AND PATIENT'S SYMPTOMS. 4. MILD ANEURYSM RIGHT COMMON ILIAC ARTERY UP TO 2.2 CM WITH PLAQUE CONTRIBUTING TO MODERATE STENOSIS . 5. SIGMOID DIVERTICULOSIS WITHOUT ACUTE DIVERTICULITIS.
== END | disposition home or self-care (01) ==
LOC: RADCTMAIN 11:31
PROVIDERS: ATTEND Urology
DX: N28.1 Cyst of kidney, acquired (principal); N40.1 Benign prostatic hyperplasia with lower urinary tract symptoms; N20.0 Calculus of kidney; I72.3 Aneurysm of iliac artery; K57.30 Diverticulosis of large intestine without perforation or abscess without bleeding; N32.89 Other specified disorders of bladder; R31.0 Gross hematuria
CPT/HCPCS: 82565; 84520; 74178; 36415; 74400; Q9967

== ENCOUNTER → 2023-12-07 | Outpatient (CLI) | payer MEDICARE, OTHER ==
[2023-12-07 11:40] LABS: African American GFR (CKD) >90 (>60 ml/min/1.73 sqM); Blood Urea Nitrogen 14 mg/dL (9-20); Non-African American GFR(CKD) 89 (>60 ml/min/1.73 sqM)
--- NOTE | 2023-12-09 15:37 | CT ---
EXAMINATION TYPE: CT chest w con DATE OF EXAM: 12/07/2023 COMPARISON: None HISTORY: abnormal cxr CT DLP: 712 mGycm, Automated exposure control for dose reduction was used. CONTRAST: Performed injected with 100 mL of Isovue 300. TECHNIQUE: Axial images were obtained at 5 mm thick sections. Reconstructed images are reviewed on [email or web address] computer in the coronal plane. FINDINGS: Portion of the thyroid visualized is normal. No suspicious lung nodules or focal infiltrates are present. No enlarged mediastinal or hilar adenopathy is evident. The ascending aorta diameter at the level o f the main pulmonary artery is 3.7 cm. The main pulmonary artery diameter at the bifurcation is 3.1 cm.Dense coronary artery calcification is present. Limited CT sections are obtained through the upper abdomen. Hepatic cysts present IMPRESSION: 1. No acute pulmonary process
== END | disposition home or self-care (01) ==
LOC: RADCTMAIN 10:55
PROVIDERS: ATTEND Internal Medicine
DX: J90 Pleural effusion, not elsewhere classified (principal)
CPT/HCPCS: 82565; 84520; 71260; 36415; Q9967

== ENCOUNTER → 2023-12-26 | Outpatient (CLI) | payer MEDICARE, OTHER | END | disposition home or self-care (01) | LOC: LABWHC1 13:10 | PROVIDERS: ATTEND Internal Medicine | DX: Z53.9 Procedure and treatment not carried out, unspecified reason (principal) ==

== ENCOUNTER → 2023-12-30 | Outpatient (CLI) | payer MEDICARE, OTHER ==
[2023-12-30 15:59] LABS: Basophils # (A) 0.02 X 10*3/uL (0.00-0.10); Basophils % (A) 0.4 %; Eosinophils # (A) 0.09 X 10*3/uL (0.04-0.35); Eosinophils % (A) 1.7 %; HCT 48.5 % (39.6-50.0); HGB 15.8 g/dL (13.0-17.0); Lymphocytes # (A) 1.05 X 10*3/uL (0.90-5.00); Lymphocytes % (A) 20.2 %; MCH 32.5 pg (27.0-32.0); MCHC 32.6 g/dL (32.0-37.0); MCV 99.8 FL (80.0-97.0); Mean Platelet Volume 10.6 FL (9.5-12.2); Monocytes # (A) 0.38 X 10*3/uL (0.20-1.00); Monocytes % (A) 7.3 %; NRBC Per 100 WBC 0 X 10*3/uL (0.00-0.01); Neutrophils # (A) 3.65 X 10*3/uL (1.80-7.70); Neutrophils % (A) 70.2 %; Platelet Count 153 X 10*3/uL (140-440); RBC 4.86 X 10*6/uL (4.40-5.60); RDW 13.2 % (11.5-14.5)
[2023-12-30 16:31] LABS: BUN/Creat Ratio 15.67 Ratio (12.00-20.00); Blood Urea Nitrogen 14.1 mg/dL (9.0-27.0); Chloride 107 mmol/L (96-109); Chol/HDL Ratio 1.77 Ratio; Glucose 101 mg/dL (70-110); LDL Cholesterol,Calculated 38.8 mg/dL (0.0-131.0); Magnesium 2.1 mg/dL (1.5-2.4); Potassium 4.4 mmol/L (3.5-5.5); Sodium 143 mmol/L (135-145); Uric Acid 5.2 mg/dL (3.7-8.7)
[2023-12-30 16:32] LABS: ALT 34 U/L (10-49); AST 19 U/L (14-35); Albumin 4.5 g/dL (3.8-4.9); Albumin/Globulin Ratio 2.14 Ratio (1.60-3.17); Alkaline Phosphatase 108 U/L (41-126); Calcium 9.5 mg/dL (8.7-10.3); Carbon Dioxide 23.2 mmol/L (21.6-31.8); Globulin 2.1 g/dL (1.6-3.3); Total Bilirubin 0.5 mg/dL (0.3-1.2); Total Protein 6.6 g/dL (6.2-8.2)
== END | disposition home or self-care (01) ==
LOC: LABWHC1 07:36
PROVIDERS: ATTEND Internal Medicine
DX: I10 Essential (primary) hypertension (principal); E78.2 Mixed hyperlipidemia; E11.9 Type 2 diabetes mellitus without complications
CPT/HCPCS: 36415; 80053; 80061; 83036; 83735; 84443; 84550; 85025

== ENCOUNTER → 2024-03-14 | Outpatient (CLI) | payer MEDICARE, OTHER | END | disposition home or self-care (01) | LOC: LABWHC1 10:40 | PROVIDERS: ATTEND Urology | DX: R97.20 Elevated prostate specific antigen [PSA] (principal) | CPT/HCPCS: 36415; 84153 ==

== ENCOUNTER 2024-05-01 06:42 | Day surgery (SDC) | payer MEDICARE, OTHER ==
[2024-05-01 06:58] VITALS: TEMP 96.9
[2024-05-01] MEDS: IV FLUID CONTINUATION 1,000 ML IV ONE (07:00)
[2024-05-01] MEDS: LACTATED RINGERS 1,000 ML IV SCH (07:06)
[2024-05-01 07:16] LABS: Glucose,Whole Blood 75 mg/dL (70-110)
[2024-05-01] MEDS ORDERED: LIDOCAINE 2% (PF) 20 MG/ML 5 ML VIAL ONE (07:51)
[2024-05-01] MEDS ORDERED: PROPOFOL 10 MG/ML 20 ML VIAL IV ONE (07:51)
--- NOTE | 2024-05-01 08:16 | P.PCN ---
Date of Procedure: 05/01/24 Procedure(s) Performed: Brief history: Patient is a pleasant 74-year-old white male scheduled for an elective upper endoscopy as well as colonoscopy as a part of evaluation of GERD/change in bowel habits for the last several months duration. He usually has 5-6 loose watery bowel movements daily. No blood or mucus in the stool. Procedure performed: Esophagogastroduodenoscopy with biopsy Colonoscopy biopsy Preoperative diagnosis: GERD Chronic diarrhea Anesthesia: MAC Procedure: After informed consent was obtained from the patient was brought into the endoscopy unit and IV sedation was administered by anesthesia under continuous monitoring. Initially upper endoscopy was done. The Olympus GF 160 video endoscope was inserted inserted into the mouth and esophagus intubated without any difficulty and was gradually advanced into the stomach and duodenum and carefully examined. The bulb and second part of the duodenum appeared normal. The scope was then withdrawn into the stomach adequately insufflated with air and upon careful examination the antrum and body, cardia and fundus appeared normal. The scope was then withdrawn into the esophagus. The GE junction was located at 40 cm to the incisors. It appeared regular with no erythema erosions or ulcerations. Rest of the esophagus appeared normal. Patient tolerated the procedure well. At this time the patient continued to remain sedation. Initial digital rectal examination was normal. Olympus CF 160 video colonoscope was then inserted into the rectum and gradually advanced to the cecum without any difficulty. Careful examination was performed as the scope was gradually being withdrawn. The prep was excellent. The cecum, ascending colon, transverse colon, descending colon, sigmoid colon and rectum appeared normal. There was a 5 mm polyp noted in the transverse colon that was removed by cold biopsy. Scattered sigmoid diverticulosis seen. Random biopsies were done from the ascending and descending colon to rule out microscopic/collagenous colitis. Retroflexion was performed in the rectum and no lesions were noted. Patient tolerated the procedure well. Impression: 1. Upper endoscopy revealed mild antral gastritis, linear erosions and 1 superficial ulceration at the GE junction s/p biopsy 2. Colonoscopy revealed 5 mm transverse colon polyp status post cold biopsy and scattered sigmoid diverticulosis Recommendations: Findings of this examination were discussed with the patient as well as his family. He was advised to follow-up with the biopsy results. If the biopsy reveals adenoma, he can have repeat colonoscopy in 5 years
[2024-05-01 08:39] VITALS: BP 152/84; PULSE 58; RESP 18
== END 2024-05-01 09:04 | disposition home or self-care (01) ==
LOC: ORWHC2ENDO 06:42
PROVIDERS: ATTEND Internal Medicine Gastroenterology
DX: K29.50 Unspecified chronic gastritis without bleeding (principal); D12.3 Benign neoplasm of transverse colon; K62.1 Rectal polyp; K57.30 Diverticulosis of large intestine without perforation or abscess without bleeding; I10 Essential (primary) hypertension; E78.5 Hyperlipidemia, unspecified; I25.10 Atherosclerotic heart disease of native coronary artery without angina pectoris; J45.909 Unspecified asthma, uncomplicated; G47.33 Obstructive sleep apnea (adult) (pediatric); K21.9 Gastro-esophageal reflux disease without esophagitis; K52.9 Noninfective gastroenteritis and colitis, unspecified; E11.9 Type 2 diabetes mellitus without complications; F17.210 Nicotine dependence, cigarettes, uncomplicated; Z79.84 Long term (current) use of oral hypoglycemic drugs; Z79.51 Long term (current) use of inhaled steroids; Z79.899 Other long term (current) drug therapy; Z98.890 Other specified postprocedural states
CPT/HCPCS: 88305; 45380; 43239; J2704; J2001

== ENCOUNTER → 2024-06-19 | Outpatient (CLI) | payer MEDICARE, OTHER ==
--- NOTE | 2024-07-31 11:39 | XR ---
Site ID [id number] Patient Inocencio Segundo H ID [id number] Age/Gender: 74Y, M Order # N/A Procedure XR Chest 2 Views Date 06/19/2024 10:34:00 AM EXAMINATION TYPE: Chest X-ray 2 Views DATE OF EXAM: 07/07/2024 6:45 PM COMPARISON: Chest radiographs from 08/16/2019, CT chest 12/07/2023 TECHNIQUE: Chest X-ray 2 Views Frontal and lateral views of the chest. Delay in interpretation due to institution cyber attack. CLINICAL INDICATION: Male, 74 year old with history of upper respiratory infection; FINDINGS: Lungs/Pleura: There is no evidence of pleural effusion, focal consolidation, or pneumothorax. Blunti ng of the left costophrenic angle relates to prominent epicardial fat on CT. Right basilar linear ate lectasis. Pulmonary vascularity: Unremarkable. Heart/mediastinum: Cardiomediastinal silhouette is unremarkable. Musculoskeletal: No acute osseous pathology. Degenerative changes of the thoracic spine. Partial visu alization of lumbar fusion hardware. IMPRESSION: Right basilar linear atelectasis.
== END | disposition home or self-care (01) ==
LOC: RADXRMAIN 10:31
PROVIDERS: ATTEND Internal Medicine
DX: J06.9 Acute upper respiratory infection, unspecified (principal); J98.11 Atelectasis
CPT/HCPCS: 71046

== ENCOUNTER → 2024-11-02 | Outpatient (CLI) | payer MEDICARE, OTHER ==
--- NOTE | 2024-11-02 12:59 | XR ---
EXAMINATION TYPE: XR tibia fibula LT DATE OF EXAM: 11/02/2024 11:57 AM COMPARISON: None CLINICAL INDICATION: Male, 74 years old with history of M79.605 PAIN IN LEFT LEG; [facility] TECHNIQUE: XR tibia fibula LT; examined in AP and lateral projections. FINDINGS: No evidence of any acute osseous pathology, joint dislocation. There is soft tissue swellin g of the leg. No radiopaque foreign body. This course of the arterial vasculature. Degeneration juarez es of the knee with osteophyte formation and joint space narrowing. Ankle arthroplasty changes appear in appropriate position. IMPRESSION: 1. No evidence of acute fracture. 2. Moderate degeneration changes of the knee. 3. Ankle arthroplasty appears in satisfactory position. 4. Soft tissue swelling of the leg correlate reported history of trauma. [facility], , 11/02/2024 12:57 PM
== END | disposition home or self-care (01) ==
LOC: RADXRMAIN 11:16
PROVIDERS: ATTEND Internal Medicine
DX: M79.89 Other specified soft tissue disorders (principal); M79.605 Pain in left leg

== ENCOUNTER → 2025-01-23 | Outpatient (CLI) | payer MEDICARE, OTHER ==
--- NOTE | 2025-01-23 11:13 | XR ---
EXAMINATION TYPE: XR chest 2V DATE OF EXAM: 01/23/2025 CLINICAL INDICATION: Male, 74 years old with history of R05.1, TECHNIQUE: Frontal and lateral views of the chest are obtained. COMPARISON: Prior chest x-ray June 19, 2024 FINDINGS: There is persistent bibasilar opacity and cardiomegaly. No pleural effusion or pneumothora x there is seen bilaterally. Surgical changes lumbar spine is partially imaged similar to prior. IMPRESSION: Cardiomegaly with bibasilar linear scarring and/or atelectasis redemonstrated. No new acu te pulmonary process seen. [facility], , 01/23/2025 11:11 AM
== END | disposition home or self-care (01) ==
LOC: RADXRMAIN 10:54
PROVIDERS: ATTEND Internal Medicine
DX: I51.7 Cardiomegaly (principal)
CPT/HCPCS: 71046

== ENCOUNTER → 2025-01-29 | Outpatient (CLI) | payer MEDICARE, OTHER ==
[2025-01-29 15:17] LABS: African American GFR (CKD) >90 (>60 ml/min/1.73 sqM); Blood Urea Nitrogen 21 mg/dL (9-20); Non-African American GFR(CKD) 89 (>60 ml/min/1.73 sqM)
--- NOTE | 2025-01-29 15:55 | CT ---
EXAMINATION TYPE: CT chest w con DATE OF EXAM: 01/29/2025 3:39 PM COMPARISON: 12/07/2023. CLINICAL INDICATION: Male, 74 years old with history of J18.9 PNEUMONIA, UNSPECIFIED ORGANISM; PHH, O n antibiotics for couple weeks, not feeling any better, possible pneumonia. Chest pain x2-3 weeks. TECHNIQUE: Multiple axial images were obtained through the chest. Sagittal and coronal reformats were created for review. MIP was performed on a separate workstation. Contrast used:100ml mL of with IV Contrast (None if empty) Oral contrast used: (None if empty) CT DLP: 526.4 mGycm, Automated exposure control for dose reduction was used. FINDINGS: LUNGS/ PLEURA: No focal consolidation, pneumothorax or pleural effusion. Streaky atelectasis in the l linus bases. Stable right lower lobe nodule measuring 6 cm series 3 image 36. AIRWAY: Patent and unremarkable. HEART: Cardiomegaly is demonstrated. Severe coronary artery calcifications present. MEDIASTINUM: No gross evidence of adenopathy. VASCULATURE: No aortic aneurysm. No filling defect within the central pulmonary arterial procedure. The aortic arch is within normal limits. MUSCULOSKELETAL: No acute osseous abnormalities SOFT TISSUES/LYMPH NODES: Unremarkable. LOWER NECK: No significant findings. UPPER ABDOMEN: Scattered simple appearing hepatic cysts. IMPRESSION: 1. No evidence for acute intrathoracic process. 2. Mild cardiomegaly. 3. Severe coronary atherosclerosis. 4. Right lower lobe 6 mm pulmonary nodule is stable. Consider yearly low-dose lung cancer screening. 5. Follow up recommendations for incidental pulmonary nodules, if there are any, are per Fleischner? s [employer] or [employer]. https://radiopaedia.org/articles/gllisjdyjl-rektxdd-khfqoidny-kbuavc-[email or web address]?lang=us [facility], , 01/29/2025 3:52 PM
== END | disposition home or self-care (01) ==
LOC: RADCTMAIN 14:21
PROVIDERS: ATTEND Internal Medicine
DX: J18.9 Pneumonia, unspecified organism (principal); I51.7 Cardiomegaly; I25.10 Atherosclerotic heart disease of native coronary artery without angina pectoris; R91.1 Solitary pulmonary nodule
CPT/HCPCS: 82565; 84520; 71260; 36415; Q9967

== ENCOUNTER 2025-02-27 17:12 | Observation (INO) | payer MEDICARE, OTHER ==
--- NOTE | 2025-02-27 17:52 | ED ---
General Adult HPI - General Chief complaint: Fall Stated complaint: fall, MAXIMILIAN Time Seen by Provider: 02/27/25 17:36 Source: patient Mode of arrival: wheelchair Limitations: no limitations - History of Present Illness Initial comments: Patient is a 74-year-old gentleman past medical history of CAD on dabigatran presenting for ground-level fall today. States he was walking and tripped, hit the right side of his head, right ribs on the cement as well as his right shoulder on the grass right hand and right knee. He was able to ambulate after the fall. Denies loss of consciousness. Currently endorses right upper quadrant abdominal pain/right rib pain and pain with taking a deep breath, right hand and right knee pain. Does take dagibitran. - Related Data Home Medications Medication Instructions Recorded Confirmed Albuterol Inhaler [Ventolin Hfa 2 puff INHALATION RT-Q4H PRN 02/01/23 02/27/25 Inhaler] Albuterol Nebulized [Ventolin 2.5 mg INHALATION DIRECTED 02/01/23 02/27/25 Nebulized] Aspirin EC [Ecotrin] 325 mg PO HS 02/01/23 02/27/25 Atorvastatin [Lipitor] 40 mg PO HS 02/01/23 02/27/25 Finasteride [Proscar] 5 mg PO DAILY 02/01/23 02/27/25 Montelukast [Singulair] 10 mg PO HS 02/01/23 02/27/25 Mv-Min/Folic/K1/Lycopen/Lutein 1 tab PO DAILY 02/01/23 02/27/25 [Centrum Silver Men Tablet] Nitroglycerin Sl Tabs [Nitrostat] 0.4 mg SUBLINGUAL Q5M PRN 02/01/23 02/27/25 Tamsulosin [Flomax] 0.4 mg PO DAILY 02/01/23 02/27/25 Topiramate [Topamax] 25 mg PO DAILY 02/01/23 02/27/25 Zolpidem [Ambien] 5 mg PO HS 02/01/23 02/27/25 lisinopriL [Prinivil] 20 mg PO DAILY 02/01/23 02/27/25 metFORMIN HCL ER [Glucophage XR] 500 mg PO HS 02/01/23 03/01/25 rOPINIRole HCL [Requip] 2 mg PO BID 02/01/23 02/27/25 rOPINIRole HCL [Requip] 2 mg PO DAILY PRN 02/01/23 02/27/25 traZODone HCL [Desyrel] 50 mg PO HS PRN 02/01/23 02/27/25 Dabigatran Etexilate Mesylate 150 mg PO BID 02/27/25 02/27/25 [Dabigatran Etexilate] Empagliflozin [Jardiance] 10 mg PO DAILY 02/27/25 02/27/25 Insulin Degludec [Tresiba 20 units SQ DAILY 02/27/25 02/27/25 Flextouch U-100 Pen] Metoprolol Succinate [Metoprolol 25 mg PO DAILY 02/27/25 02/27/25 Succinate ER] Omeprazole 20 mg PO DAILY 02/27/25 02/27/25 Spironolactone [Aldactone] 25 mg PO DAILY 02/27/25 02/27/25 Allergies Allergy/AdvReac Type Severity Reaction Status Date / Time No Known Allergies Allergy Verified 02/27/25 20:23 Review of Systems ROS Statement: Those systems with pertinent positive or pertinent negative responses have been documented in the HPI. ROS Other: All systems not noted in ROS Statement are negative. Past Medical History Past Medical History: Asthma, Coronary Artery Disease (CAD), Chest Pain / Angina, Hyperlipidemia, Hypertension Additional Past Medical History / Comment(s): partial left lung collaspe History of Any Multi-Drug Resistant Organisms: None Reported Past Surgical History: Heart Catheterization, Heart Catheterization With Stent, Joint Replacement, Orthopedic Surgery Additional Past Surgical History / Comment(s): lamenectomy, carpal tunnel, cataracts Past Psychological History: No Psychological Hx Reported Smoking Status: Current some day smoker Past Alcohol Use History: Occasional Past Drug Use History: None Reported General Exam - General Exam Comments Initial Comments: PE: CONSTITUTIONAL: No apparent distress, well appearing, though uncomfortable SKIN: Warm, dry, no jaundice, hives or petechiae. Abrasion to right shoulder, bruising to dorsal medial aspect right hand, abrasion to right knee, bruising to RLE, lateral, just inferior to right knee EYES: Pupils are equally round, extraocular movements intact without nystagmus, clear conjunctiva, non-icteric sclera HENT: Normocephalic, small contusion right paterial occiput, moist mucus membranes, oropharynx clear without exudates NECK: , Full range of motion, normal appearance, no midline spinal TTP PULMONARY: Clear to auscultation without wheezes, rhonchi, or rales, decreased excursion 2/2 pain with deep breathing, no accessory muscle use and no stridor, TTP lateral lower right ribs CARDIOVASCULAR: Regular rate, rhythm, normal S1 and S2. No appreciated murmurs, rubs or gallops. Strong radial pulses with intact distal perfusion. No lower extremity edema GASTROINTESTINAL: Soft, active bowel sounds throughout, TTP RUQ, non-distended, no palpable masses, no rebound or guarding. No hepatosplenomegaly MUSCULOSKELETAL: Extremities have no gross deformity, no edema, redness, or swelling. Able to range right shoulder through full ROM without motor or sensory deficit, no bony TTP, small amount of swelling overlying right clavicular region, TTP overlying dorsal medial right hand, moves affected hand through full ROM, no gross deformity, TTP lateral right knee, able to range through full R OM, no deformity NEUROLOGIC:_a/o x 3, GCS 15, normal mentation and speech. Moves all extremities x 4 without motor or sensory deficit PSYCHIATRIC:_normal mood and affect, thought process is clear and linear Limitations: no limitations Course Vital Signs 02/27/25 02/27/25 02/27/25 17:14 18:29 19:20 Temperature 97.5 F L Pulse Rate 45 L 73 64 Respiratory 22 16 Rate Blood Pressure 175/91 125/101 O2 Sat by Pulse 95 96 Oximetry 02/27/25 02/27/25 02/27/25 19:29 20:00 22:42 Temperature Pulse Rate 66 71 66 Respiratory 18 18 Rate Blood Pressure 121/89 133/88 O2 Sat by Pulse 95 96 Oximetry 02/27/25 23:28 Temperature 98.4 F Pulse Rate 76 Respiratory 18 Rate Blood Pressure 126/83 O2 Sat by Pulse 95 Oximetry EKG Findings - EKG Comments: EKG Findings:: Sinus rhythm with occasional PVCs, respiratory variation, rate 74 bpm ME interval 164 ms QT/QTc 370/402 ms, borderline left axis deviation, PVC present, no significant ST elevations or depressions, no prior for comparison Medical Decision Making - Medical Decision Making Was pt. sent in by a medical professional or institution (, PA, CALL CENTER OPERATOR, urgent care, hospital, or penitentiary...) When possible be specific @ -[No] Did you speak to anyone other than the patient for history (EMS, parent, family, police, friend...)? What history was obtained from this source @ -[No] Did you review nursing and triage notes (agree or disagree)? Why? @ -[I reviewed and agree with nursing and triage notes] Were old charts reviewed (outside hosp., previous admission, EMS record, old EKG , old radiological studies, urgent care reports/EKG's, penitentiary records)? Report findings @ -[Medical records reviewed] Differential Diagnosis (chest pain, altered mental status, abdominal pain women, abdominal pain men, vaginal bleeding, weakness, fever, dyspnea, syncope, headache, dizziness, GI bleed, back pain, seizure, CVA, palpatations, mental health, musculoskeletal)? @Differential Musculoskeletal Muscular strain, contusion, ligament sprain, fracture, arthritis, septic arthritis, bursitis, cellulitis, muscle spasm, nerve compression, DVT, arterial occlusion, herpes zoster, electrolyte abnormality, tumor, pneumothorax, hemorthorax, liver laceration, rib fracture, traumatic intracranial hemorrhage.... This is not meant to be in all inclusive list EKG interpreted by me (3pts min.). @ -[As above] X-rays interpreted by me (1pt min.). @ I personally reviewed plain films, I see no evidence of fracture or dislocation on any of these films, I agree with radiologist interpretation, A dditionally, I see no evidence of pneumothorax on CXR CT interpreted by me (1pt min.). @I personally reviewed CT brain and C spine, I see no evidence of fracture or hemorrhage, I agree with radiologist interpretation, I personally reviewed CT chest/abdomen/pelvis, I do see an area along anterolateral rib 9 or 10 that appears to be consistent with possible nondisplaced/minimally displaced rib frac ture, additionally noted right liver cyst, no other acute process, rib fracture was not noted by radiologist so did attempt to contact radiologist to further discuss however unable to reach, otherwise agree with radiologist interpretation U/S interpreted by me (1pt. min.). @ -[None done] What testing was considered but not performed or refused? (CT, X-rays, U/S, labs)? Why? @ -[None] What meds were considered but not given or refused? Why? @ -[None] Did you discuss the management of the patient with other professionals (professionals i.e. , PA, CALL CENTER OPERATOR, lab, RT, psych nurse, clinical social work therapist, creative services writer, teacher, branch lending officer, behavioral health case manager)? Give summary @ -[No] Was smoking cessation discussed for >3mins.? @ -[No] Was critical care preformed (if so, how long)? @ -[No] Were there social determinants of health that impacted care today? How? (Homelessness, low income, unemployed, alcoholism, drug addiction, transportation, low edu. Level, literacy, decrease access to med. care, retirement, rehab)? @ -[No] Was there de-escalation of care discussed even if they declined (Discuss DNR or withdrawal of care, Hospice)? @ -[No] What co-morbidities impacted this encounter? (DM, HTN, Smoking, COPD, CAD, C ancer, CVA, ARF, Chemo, Hep., AIDS, mental health diagnosis, sleep apnea, morbid obesity)? @ -CAD on dagibitration, asthma Was patient admitted / discharged? Hospital course, mention meds given and ro jen, prescriptions, significant lab abnormalities, going to OR and other pertinent info. Admission- patient is a pleasant 74-year-old gentleman past medical history CAD on pradaxa, asthma, presenting for ground-level fall. Was activated as a code coag due to fall and head injury on blood thinner. CT brain C-spine obtained in addition to plain films of patient's chest, right clavicle, right hand and right knee. Due to persistent right upper quadrant/right rib pain and fall on blood thinner will obtain CT chest abdomen pelvis to evaluate for blunt pulmonary or intra-abdominal injury. Basic labs obtained. Though x-ray chest is negative for fracture or pneumothorax I suspect there may be a small rib fracture present based on patient's discomfort and exam. Additional DuoNeb ordered due to patient's history of asthma, difficulty taking deep breaths due to pain. C spine was cleared. There is no midline cervical neck tenderness or step-offs. The patient denies any numbess, tingling, or weakness of the extremities when moving neck through full ROM. The patient is able to range their neck completely without midline cervical pain, numbness, tingling or weakness. Imaging negative for acute traumatic process though I do feel as though I see a small possible rib fracture in your rib 9 or 10 which could be causing patient's persistent pain. He has received morphine and Dilaudid without improvement of his pain. Due to patient's history of asthma, difficulty taking deep breaths due to pain does not feel his Pain can be adequately managed at home at this time will admit for pain control. Added Robaxin, Tylenol. Additionally, CT did note scleroti appearing lesion nera T8, discussed with pt monitoring closely with his PCP. Case was discussed with Dr. Mitchell who kindly excepted patient for admission. Undiagnosed new problem with uncertain prognosis? @ -[No] Drug Therapy requiring intensive monitoring for toxicity (Heparin, Nitro, Insulin, Cardizem)? @ -[No] Were any procedures done? @ -[No] Diagnosis/symptom? @Right rib fracture, fall, multiple contusions, intractable pain Acute, or Chronic, or Acute on Chronic? @ acute Uncomplicated (without systemic symptoms) or Complicated (systemic symptoms)? @ complicated Side effects of treatment? @ -[No] Exacerbation, Progression, or Severe Exacerbation? @ -[No] Poses a threat to life or bodily function? How? (Chest pain, USA, CT, pneumonia, PE, COPD, DKA, ARF, appy, cholecystitis, CVA, Diverticulitis, Homicidal, Suicidal, threat to staff... and all critical care pts) @ -[No] - Lab Data Result diagrams: 03/01/25 05:09 03/01/25 05:09 Lab Results 02/27/25 02/27/25 02/27/25 Range/Units 18:26 18:26 18:26 WBC 6.58 (4.50-10.00) 10*3/uL RBC 4.38 L (4.40-5.60) 10*6/uL Hgb 14.8 (13.0-17.0) g/dL Hct 42.2 (39.6-50.0) % MCV 96.3 (80.0-97.0) fL MCH 33.8 H (27.0-32.0) pg MCHC 35.1 (32.0-37.0) g/dL Plt Count 183 (140-440) 10*3/uL MPV 9.7 (9.5-12.2) fL Immature Gran % (Auto) 0.3 % Neutrophils % 75.5 % Lymphocytes % 16.3 % Monocytes % 6.8 % Eosinophils % 0.6 % Basophils % 0.5 % Immature Gran # 0.02 (0.00-0.04) 10*3/uL Neutrophils # 4.97 (1.80-7.70) 10*3/uL Lymphocytes # 1.07 (0.90-5.00) 10*3/uL Monocytes # 0.45 (0.20-1.00) 10*3/uL Eosinophils # 0.04 (0.04-0.35) 10*3/uL Basophils # 0.03 (0.00-0.10) 10*3/uL PT 11.6 (10.0-12.5) sec INR 1.1 (<1.2) APTT 34.0 H (22.0-30.0) sec Sodium 138 (137-145) mmol/L Potassium 4.1 (3.5-5.1) mmol/L Chloride 108 H (98-107) mmol/L Carbon Dioxide 23 (22-30) mmol/L Anion Gap 7 mmol/L BUN 12 (9-20) mg/dL Creatinine 0.68 (0.66-1.25) mg/dL Est GFR (CKD-EPI)AfAm >90 (>60 ml/min/1.73 sqM) Est GFR (CKD-EPI)NonAf >90 (>60 ml/min/1.73 sqM) Glucose 99 (74-99) mg/dL Calcium 9.4 (8.4-10.2) mg/dL Total Bilirubin 1.0 (0.2-1.3) mg/dL AST 31 (17-59) U/L ALT 37 (4-49) U/L Alkaline Phosphatase 85 (38-126) U/L Creatine Kinase 75 (55-170) U/L Troponin I (0.000-0.034) ng/mL Total Protein 6.4 (6.3-8.2) g/dL Albumin 4.1 (3.5-5.0) g/dL 02/27/25 Range/Units 18:26 WBC (4.50-10.00) 10*3/uL RBC (4.40-5.60) 10*6/uL Hgb (13.0-17.0) g/dL Hct (39.6-50.0) % MCV (80.0-97.0) fL MCH (27.0-32.0) pg MCHC (32.0-37.0) g/dL Plt Count (140-440) 10*3/uL MPV (9.5-12.2) fL Immature Gran % (Auto) % Neutrophils % % Lymphocytes % % Monocytes % % Eosinophils % % Basophils % % Immature Gran # (0.00-0.04) 10*3/uL Neutrophils # (1.80-7.70) 10*3/uL Lymphocytes # (0.90-5.00) 10*3/uL Monocytes # (0.20-1.00) 10*3/uL Eosinophils # (0.04-0.35) 10*3/uL Basophils # (0.00-0.10) 10*3/uL PT (10.0-12.5) sec INR (<1.2) APTT (22.0-30.0) sec Sodium (137-145) mmol/L Potassium (3.5-5.1) mmol/L Chloride (98-107) mmol/L Carbon Dioxide (22-30) mmol/L Anion Gap mmol/L BUN (9-20) mg/dL Creatinine (0.66-1.25) mg/dL Est GFR (CKD-EPI)AfAm (>60 ml/min/1.73 sqM) Est GFR (CKD-EPI)NonAf (>60 ml/min/1.73 sqM) Glucose (74-99) mg/dL Calcium (8.4-10.2) mg/dL Total Bilirubin (0.2-1.3) mg/dL AST (17-59) U/L ALT (4-49) U/L Alkaline Phosphatase (38-126) U/L Creatine Kinase (55-170) U/L Troponin I <0.012 (0.000-0.034) ng/mL Total Protein (6.3-8.2) g/dL Albumin (3.5-5.0) g/dL Disposition Clinical Impression: Fall, Intractable pain, Right rib fracture, Multiple contusions Disposition: ADMITTED IP TO THIS [facility] Condition: Stable
--- NOTE | 2025-02-27 17:56 | CT ---
EXAMINATION TYPE: CT brain cspine wo con CT DLP: 1479.6 mGycm, Automated exposure control for dose reduction was used. DATE OF EXAM: 02/27/2025 5:43 PM COMPARISON: None.. CLINICAL INDICATION:Male, 74 years old with history of Trauma; CODE COAG, fall on thinners. Rib pain, knee pain, hand pain., pain TECHNIQUE: Brain: Multiple axial CT images of the brain were obtained without IV contrast. Cspine: Axial CT images from the skull base to the inferior aspect of T2 we obtained without intraven ous contrast. Coronal and sagittal reformatted images were also reviewed. FINDINGS: Motion degraded examination. Brain: Extra-axial spaces: No abnormal extra-axial fluid collections. Ventricular system: Within normal limits Cerebral parenchyma: Cerebral atrophy. Most pronounced involving the bilateral frontal lobes. No acut e intraparenchymal hemorrhage or mass effect. The allen-white junction is well differentiated. Scatte red hypoattenuating areas are seen within the periventricular white matter. Left basal ganglia promi nent perivascular space versus remote lacunar injury. Cerebellum: Unremarkable. Mass effect: No evidence of midline shift. Intracranial vasculature: Atherosclerotic calcifications of the intracranial vessels. Soft tissues: Normal. Calvarium/osseous structures: No depressed skull fracture. Paranasal sinuses and mastoid air cells: The mastoid air cells are clear. Changes from bilateral maxi llary antrostomy. Mild mucosal thickening in the right maxillary sinus. Moderate mucosal thickening o f the left maxillary sinus. The remaining paranasal sinuses are clear. Visualized orbits: Bilateral aphakia Cervical spine: Fracture: No gross evidence of fracture. Osseous structures: Multilevel degenerative disc disease changes with endplate spurring and disc oste ophyte complex's. Vertebral alignment: Reversal of the normal cervical lordosis. Grade 1 anterolisthesis of C7 on T1. Spinal canal/Neural Foramina: Disc osteophyte complexes at C4-C5, C5-C6, and C6-C7 with at least mild spinal canal stenosis. Facet joint uncovertebral joint arthropathy scattered throughout the cervical spine with varying degrees of neural foraminal stenosis. Neck soft tissues: Prevertebral soft tissues are within normal limits. Other: The airway is patent. The lung apices are clear. IMPRESSION: Motion degraded examination. 1. No gross evidence of acute intracranial process. 2. Nonspecific white matter changes, likely secondary to chronic small vessel ischemic disease. 3. No gross evidence of cervical spine fracture. 4. Moderate multilevel degenerative disc disease. [facility], , 02/27/2025 5:54 PM
--- NOTE | 2025-02-27 18:24 | XR ---
EXAMINATION TYPE: XR knee 4V RT DATE OF EXAM: 02/27/2025 6:20 PM INDICATION: Patient age:Male; 74 years old; Reason for study: contusion, fall; PHH. pain COMPARISON: None. TECHNIQUE: The Right knee(s) was examined in Frontal, lateral , sunrise, and oblique projections. FINDINGS: Post surgical changes from total right knee arthroplasty. Hardware appears intact with appr opriate alignment. No periprosthetic lucency identified. No evidence of any acute osseous pathology, soft tissue swelling, or joint effusion is noted. Vascular sclerosis. IMPRESSION: 1. No acute osseous pathology. 2. Post surgical changes from total right knee arthroplasty. Hardware appears intact with appropriate alignment. [facility], , 02/27/2025 6:22 PM
[2025-02-27] MEDS: ONDANSETRON 4 MG/2 ML VIAL IVP STA (18:26)
[2025-02-27] MEDS: SODIUM CHLORIDE 0.9% 500 ML 500 ML IV ONE (18:26)
[2025-02-27] MEDS: MORPHINE SULFATE 4 MG/ML SYRINGE IVP STA (18:26)
--- NOTE | 2025-02-27 18:26 | XR ---
EXAMINATION TYPE: XR chest 1V portable DATE OF EXAM: 02/27/2025 6:16 PM COMPARISON: Chest radiographs from 01/23/2025, CT chest 01/29/2025 TECHNIQUE: XR chest 1V portable Portable AP radiograph of the chest. CLINICAL INDICATION:Male, 74 years old with history of fall; pain FINDINGS: Lungs/Pleura: Small left pleural effusion. Bibasilar linear atelectasis. No focal consolidation. No p neumothorax. Pulmonary vascularity: Unremarkable. Heart/mediastinum: Cardiomediastinal silhouette is unremarkable. Musculoskeletal: No acute osseous pathology. IMPRESSION: Small left pleural effusion and with bibasilar linear atelectasis. [facility], , 02/27/2025 6:23 PM
--- NOTE | 2025-02-27 18:27 | XR ---
EXAMINATION TYPE: XR clavicle RT DATE OF EXAM: 02/27/2025 6:21 PM INDICATION: Patient age:Male; 74 years old; Reason for study: poss right clavicle fracture; PHH. pain COMPARISON: Chest radiograph 02/27/2025, CT chest 01/29/2025 TECHNIQUE: AP and cephalic tilt views were obtained of the right clavicle. FINDINGS: No evidence of acute or chronic osseous pathology, joint dislocation or soft tissue swelling. AC join t arthropathy with superior osteophyte formation. IMPRESSION: 1. No acute fracture or dislocation. 2. Mild AC joint arthropathy. [facility], , 02/27/2025 6:24 PM
--- NOTE | 2025-02-27 18:30 | XR ---
EXAMINATION TYPE: XR hand complete RT, XR wrist complete RT DATE OF EXAM: 02/27/2025 6:20 PM INDICATION: Patient age:Male; 74 years old; Reason for study: fall, pain medial left hand; PHH. pain COMPARISON: None TECHNIQUE: Frontal, lateral and oblique views of the right hand were obtained. The right wrist was ex amined in frontal, lateral, oblique, and scaphoid projections. FINDINGS: Normal alignment of the visualized joints. No acute osseous pathology is identified. Remot e healed left fifth metacarpal fracture. Remote ulnar styloid process fracture with well-corticated a ppearance. Degenerative changes of the radioulnar joint with joint space narrowing, sclerosis and ost eophytosis. Mild soft tissue swelling of the wrist. IMPRESSION: 1. No acute osseous pathology. 2. Mild soft tissue swelling of the wrist. 3. Remote healed fracture of the left fifth metacarpal. Additional remote ulnar styloid process frac ture. [facility], , 02/27/2025 6:27 PM
[2025-02-27 18:34] LABS: Basophils # (A) 0.03 10*3/uL (0.00-0.10); Basophils % (A) 0.5 %; Eosinophils # (A) 0.04 10*3/uL (0.04-0.35); Eosinophils % (A) 0.6 %; HCT 42.2 % (39.6-50.0); HGB 14.8 g/dL (13.0-17.0); Lymphocytes # (A) 1.07 10*3/uL (0.90-5.00); Lymphocytes % (A) 16.3 %; MCH 33.8 pg (27.0-32.0); MCHC 35.1 g/dL (32.0-37.0); MCV 96.3 fL (80.0-97.0); Mean Platelet Volume 9.7 fL (9.5-12.2); Monocytes # (A) 0.45 10*3/uL (0.20-1.00); Monocytes % (A) 6.8 %; Neutrophils # (A) 4.97 10*3/uL (1.80-7.70); Neutrophils % (A) 75.5 %; Platelet Count 183 10*3/uL (140-440); RBC 4.38 10*6/uL (4.40-5.60); WBC 6.58 10*3/uL (4.50-10.00)
[2025-02-27 18:49] LABS: INR 1.1 (<1.2); Prothrombin Time 11.6 sec (10.0-12.5)
[2025-02-27 18:58] LABS: ALT 37 U/L (4-49); AST 31 U/L (17-59); African American GFR (CKD) >90 (>60 ml/min/1.73 sqM); Albumin 4.1 g/dL (3.5-5.0); Alkaline Phosphatase 85 U/L (38-126); Anion Gap 7 mmol/L; Blood Urea Nitrogen 12 mg/dL (9-20); Calcium 9.4 mg/dL (8.4-10.2); Carbon Dioxide 23 mmol/L (22-30); Chloride 108 mmol/L (98-107); Creatine Kinase 75 U/L (55-170); Glucose 99 mg/dL (74-99); Non-African American GFR(CKD) >90 (>60 ml/min/1.73 sqM); Potassium 4.1 mmol/L (3.5-5.1); Sodium 138 mmol/L (137-145); Total Protein 6.4 g/dL (6.3-8.2)
[2025-02-27] MEDS: IPRATROPIUM-ALBUTEROL 3 ML NEB INHALATION STA (19:19)
[2025-02-27] MEDS: HYDROmorphone 1 MG/ML 1 ML SYRINGE IVP STA (19:54)
[2025-02-27] MEDS: LIDOCAINE 4% PATCH TOPICAL ONE (19:59)
--- NOTE | 2025-02-27 21:31 | CT ---
EXAMINATION TYPE: CT ChestAbdPelvis w con DATE OF EXAM: 02/27/2025 8:48 PM COMPARISON: None. CLINICAL INDICATION: Male, 74 years old with history of fall, right flank/abdom pain, on thinners; PH H, fall on sidewalk +hit head, -LOC, +thinners pt appears SOB in triage Technique: CT ChestAbdPelvis w con; Multiple axial images were obtained. Two-dimensional coronal and sagittal reconstructions were obtained. Contrast used:100ml mL of Isovue 300 with IV Contrast, (None if empty) Oral contrast used: without Oral Contrast CT DLP: 2053.3 mGycm, Automated exposure control for dose reduction was used. Findings: CHEST: LUNGS/ PLEURA: No focal consolidation, pneumothorax or pleural effusion. AIRWAY: Patent and unremarkable. HEART: Cardiomegaly is demonstrated. Mild coronary artery calcifications present. MEDIASTINUM: No gross evidence of adenopathy. VASCULATURE: No aortic aneurysm. MUSCULOSKELETAL: No acute osseous abnormalities. SOFT TISSUES/LYMPH NODES: Unremarkable. LOWER NECK: No significant findings. ABDOMEN: ABDOMEN LIVER: Simple appearing cysts in the liver measuring up to 6.5 cm. No focal loculated. Diffuse low-at tenuation. GALLBLADDER AND BILE DUCTS: Unremarkable. PANCREAS: Unremarkable. SPLEEN: Unremarkable. ADRENAL GLANDS: Unremarkable. KIDNEYS AND URETERS: No evidence of hydronephrosis or obstructing renal calculus. The ureters are unr emarkable. r simple appearing 4 mm. Nonobstructing left 4 mm calculus. PELVIS BLADDER: Unremarkable REPRODUCTIVE: Prostate is enlarged in size measuring 6.5 cm in transverse dimension. ABDOMEN & PELVIS STOMACH AND BOWEL: No evidence of bowel obstruction. Scattered colonic diverticula. The appendix is n ormal. PERITONEUM/RETROPERITONEUM: No evidence of pneumoperitoneum or free fluid. VASCULATURE: No evidence of aortic aneurysm. Mural thrombus within proximal right common iliac artery . The artery is patent. MUSCULOSKELETAL: No acute osseous abnormalities. Moderate disc degeneration changes are present throu ghout the thoracolumbar spine. Post surgical changes the spine at L1 and L3. Hardware intact. Vertebr oplasty changes at L2. Indeterminate 7 mm sclerotic focus in the T8 vertebral body LYMPH NODES: No gross evidence for lymphadenopathy. SOFT TISSUE/ABDOMINAL WALL: Unremarkable 1. IMPRESSION: 2. No evidence for acute thoracic or abdominal process. No evidence for spinal fracture. 3. There is streaky atelectasis in the lung bases. 4. Indeterminate sclerotic lesion measuring 7 mm and T8 vertebral body. 5. Fixation hardware in the spine appears intact. 6. Mild cardiomegaly. 7. Mild to moderate coronary artery atherosclerosis. 8. Hepatic steatosis. 9. Simple appearing hepatic cysts and renal cysts no follow-up recommended. 10. Nonobstructing left renal calculus. 11. Prostatomegaly, correlate with serum PSA. 12. Colonic diverticulosis. [facility], , 02/27/2025 9:29 PM
[2025-02-27] MEDS ORDERED: NALOXONE 0.4 MG/ML 1 ML VIAL IV PRN (22:47)
[2025-02-27] MEDS ORDERED: CALCIUM CARBONATE 500 MG CHEWABLE PO PRN (22:47)
[2025-02-27] MEDS ORDERED: HYDROmorphone 1 MG/ML 1 ML SYRINGE IVP PRN (22:47)
[2025-02-27] MEDS ORDERED: ALPRAZolam 0.25 MG TAB PO PRN (22:47)
[2025-02-27] MEDS ORDERED: MAG HYDROX/AL HYDROX/SIMETH 30 ML CUP PO PRN (22:47)
[2025-02-27] MEDS ORDERED: ONDANSETRON 4 MG/2 ML VIAL IVP PRN (22:47)
[2025-02-27] MEDS ORDERED: NITROGLYCERIN SL TABS 0.4 MG TAB SUBLINGUAL PRN (22:50)
[2025-02-27] MEDS ORDERED: ALBUTEROL NEBULIZED 2.5 MG/3 ML INHALATION PRN (22:50)
[2025-02-27] MEDS ORDERED: ALBUTEROL NEBULIZED 2.5 MG/3 ML INHALATION SCH (23:00)
[2025-02-27] MEDS: methocarbamoL 500 MG TAB PO STA (23:06)
[2025-02-27] MEDS: HYDROcodone/APAP 5-325MG 1 EACH TAB PO STA (23:06)
[2025-02-27] MEDS: ATORVASTATIN 40 MG TAB PO SCH (23:36)
[2025-02-27] MEDS: ASPIRIN 325 MG TAB PO SCH (23:36)
[2025-02-27] MEDS: MONTELUKAST 10 MG TAB PO SCH (23:40)
[2025-02-27] MEDS: traZODone HCL 50 MG TAB PO PRN (23:40)
[2025-02-27] MEDS: ZOLPIDEM 5 MG TAB PO SCH (23:40)
[2025-02-28] MEDS: metFORMIN 500 MG TAB PO SCH (00:44)
[2025-02-28] MEDS: DABIGATRAN 150 MG CAP PO SCH (00:45)
[2025-02-28] MEDS: HYDROmorphone 2 MG/ML 1 ML SYRINGE IVP PRN (02:48)
[2025-02-28] MEDS: methocarbamoL 500 MG TAB PO PRN (05:53)
[2025-02-28] MEDS: traMADol 50 MG TAB PO PRN (06:39)
[2025-02-28 07:07] LABS: Glucose,Whole Blood 159 mg/dL (70-110)
[2025-02-28] MEDS: INSULIN GLARGINE (LANTUS) 100 UNIT/ML SYR SQ SCH (08:20)
[2025-02-28] MEDS: SPIRONOLACTONE 25 MG TAB PO SCH (08:21)
[2025-02-28] MEDS: lisinopriL 20 MG TAB PO SCH (08:21)
[2025-02-28] MEDS: TAMSULOSIN 0.4 MG CAP.ER.24H PO SCH (08:21)
[2025-02-28] MEDS: DAPAGLIFLOZIN PROPANEDIOL 5 MG TABLET PO SCH (08:21)
[2025-02-28] MEDS: PANTOPRAZOLE 40 MG TABLET PO SCH (08:21)
[2025-02-28] MEDS: MULTIVITAMINS, THERA 1 EACH TAB PO SCH (08:21)
[2025-02-28] MEDS: FINASTERIDE 5 MG TAB PO SCH (08:21)
[2025-02-28] MEDS: FAMOTIDINE 20 MG TAB PO SCH (08:21)
[2025-02-28] MEDS: METOPROLOL SUCCINATE (ER) 25 MG TAB.ER.24H PO SCH (08:21)
[2025-02-28] MEDS: TOPIRAMATE 25 MG TAB PO SCH (08:21)
[2025-02-28] MEDS: ALBUTEROL NEBULIZED 2.5 MG/3 ML INHALATION PRN (08:31)
[2025-02-28] MEDS: SODIUM CHLORIDE 0.9% 500 ML 500 ML IV ONE (10:10)
[2025-02-28] MEDS: SODIUM CHLORIDE 0.9% 1,000 ML IV SCH (10:35)
[2025-02-28] MEDS: ACETAMINOPHEN TAB 325 MG TAB PO PRN (10:51)
--- NOTE | 2025-02-28 11:45 | CT ---
EXAMINATION TYPE: CT brain wo con CT DLP: 1236 mGycm, Automated exposure control for dose reduction was used. DATE OF EXAM: 02/28/2025 11:27 AM COMPARISON: CT brain C-spine 02/27/2025 CLINICAL INDICATION:Male, 74 years old with history of change in status, Change in mental status, fal l on thinners CT scan done yesterday TECHNIQUE: Brain: Multiple axial CT images of the brain were obtained without IV contrast. . Coronal and sagitta l reformats reviewed. FINDINGS: Brain: Extra-axial spaces: No abnormal extra-axial fluid collections. Ventricular system: Within normal limits Cerebral parenchyma: Cerebral atrophy. Most pronounced involving the bilateral frontal lobes. No acut e intraparenchymal hemorrhage or mass effect. Empty sella morphology. The allen-white junction is wel l differentiated. Scattered hypoattenuating areas are seen within the periventricular white matter. Bilateral basal ganglia prominent perivascular space versus remote lacunar injury. Cerebellum: Unremarkable. Mass effect: No evidence of midline shift. Intracranial vasculature: Atherosclerotic calcifications of the intracranial vessels. Soft tissues: Normal. Calvarium/osseous structures: No depressed skull fracture. Paranasal sinuses and mastoid air cells: The mastoid air cells are clear. Changes from bilateral maxi llary antrostomy. Mild mucosal thickening in the right maxillary sinus. Moderate mucosal thickening o f the left maxillary sinus. Minimal scattered mucosal thickening of the remaining paranasal sinuses. Visualized orbits: Bilateral aphakia IMPRESSION: 1. No acute intracranial process. 2. Nonspecific white matter changes, likely secondary to chronic small vessel ischemic disease. [facility], , 02/28/2025 11:42 AM
[2025-02-28 12:37] LABS: Glucose,Whole Blood 137 mg/dL (70-110)
[2025-02-28 13:25] LABS: NT-Pro-B-Type Natriuretic Pept 199 pg/mL
--- NOTE | 2025-02-28 13:35 | US ---
EXAMINATION TYPE: US carotid duplex BILAT DATE OF EXAM: 02/28/2025 COMPARISON: NONE CLINICAL INDICATION: Male, 74 years old with history of fall, possible syncope; Smoker, hypertension, hyperlipidemia, diabetes fall, possible syncope. TECHNIQUE: Grayscale, color Doppler and spectral Doppler evaluation of the bilateral carotid systems and vertebral arteries. Indirect Doppler criteria was utilized. FINDINGS: EXAM MEASUREMENTS: RIGHT: Peak Systolic Velocity (PSV) cm/sec ----- Right CCA: 102 ----- Right ICA: 91.8 ----- Right ECA: 203 ICA/CCA ratio: 0.90 RIGHT: End Diastole cm/sec ----- Right CCA: 15.4 ----- Right ICA: 16.7 ----- Right ECA: 9.3 LEFT: Peak Systolic Velocity (PSV) cm/sec ----- Left CCA: 113 ----- Left ICA: 91.8 ----- Left ECA: 247 ICA/CCA ratio: 0.81 LEFT: End Diastole cm/sec ----- Left CCA: 24.8 ----- Left ICA: 24.7 ----- Left ECA: 21.0 VERTEBRALS (direction of flow): Right Vertebral: Not seen Left Vertebral: Not seen Rhythm: Arrhythmia indicated by the adobe cq developer REPACKER NOTES: Bilateral vertebral arteries were not visualized. *Elevated velocities in bilate ral ECAs. Moderate atherosclerotic plaque seen in bilateral bulbs. IMPRESSION: 1. No hemodynamically significant internal carotid artery stenosis on either side. 2. Elevated ECA velocities suggesting underlying ECA stenoses. 3. Unable to adequately visualize the vertebral arteries for assessment. Criteria for Assigning % of Stenosis / Diameter reduction (Estimation based on the indirect measurements of the internal carotid artery velocities (ICA PSV). 1. Normal (no stenosis)=ICA PSV < 180 cm/s: ratio < 2.0: ICA EDV<40 cm/s. 2. Less than 50% stenosis=ICA PSV < 180 cm/s: ratio < 2.0: ICA EDV<40 cm/s. 3. 50 to 69% stenosis=ICA PSV of 180 to 230 cm/s: ration 2.0 ? 4.0: ICA EDV 40-100 cm/s. PSV 125-180 cm/sec and ICA/CCA PSV Ratio ? 2.0 is also consistent with 50-69% stenosis 4. Greater than 70% stenosis to near occlusion= ICA PSV > 230 cm/s: ratio > 4.0: ICA EDV > 100 cm/s. 5. Near occlusion= ICA PSV velocities may be low or undetectable: variable ratio and ICA EDV. 6. Total occlusion=unable to detect flow. [facility], , 02/28/2025 1:32 PM
--- NOTE | 2025-02-28 14:40 | P.CRDCN ---
History of Present Illness Consult date: 02/28/25 Reason for Consult (text): Low heart rate History of present illness: This is 74-year-old male follows with a animal nutritionist at [facility] with past medical history of coronary artery disease with stent placed in 2020, hypertension, hyperlipidemia. Patient states that he was raking in unit falling and hitting the cement. He states he turned and is not sure what happened but does not think he was lightheaded or dizzy prior to the fall. He is not sure if he had a loss of consciousness. He states he has had increasing fatigue with shortness of breath this been worsening over the past couple of months. He also has chronic lower extremity edema. He states his chest is now sore after the fall. He follows with his animal nutritionist regularly and is scheduled for a stress test outpatient. Blood pressure 121/69, pulse documented in the 40s, by auscultation in the 70s, blood pressure 121/69. -EKG: Sinus rhythm at 74 bpm with PACs and PVCs. -Chest x-ray: Small left pleural effusion with bibasilar linear atelectasis. -Laboratory studies: WBC 6.5, hemoglobin 14.8, sodium 138, potassium 4.1, BUN 12, creatinine 0.68. Troponin negative x 1. proBNP 199. TSH 1.4. -Home cardiac medications: Aspirin 325 mg at bedtime, atorvastatin 40 mg at bedtime, Pradaxa 150 mg twice daily, Farxiga 5 mg daily, lisinopril 20 mg daily, metoprolol succinate 25 mg daily, Nitrostat as needed, spironolactone 25 mg daily, also on Jardiance 10 mg daily. Review Of Systems: At the time of my exam: CONSTITUTIONAL: Denies fever or chills. Reports generalized weakness and fatigue. HEENT: Denies blurred vision, vision changes, or eye pain. Denies hemoptysis CARDIOVASCULAR: Denies chest pain. Denies orthopnea. Denies PND. Denies palpitations. Reports chronic lower extremity edema RESPIRATORY: Reports chronic and worsening shortness of breath. GASTROINTESTINAL: Denies abdominal pain. Denies nausea or vomiting. HEMATOLOGIC: Denies bleeding disorders. GENITOURINARY: Denies any blood in urine. SKIN: Denies puritis. Denies rash. Physical examination: Gen: This is a 74-year-old male in no acute distress. VS: reviewed HEENT: Head is atraumatic, normocephalic. Pupils equal, round. Sclerae is anicteric. NECK: Supple. No JVD. LUNGS: Clear to auscultation. No wheezes or rhonchi. No intercostal retractions. HEART: Irregular rate and rhythm. ABDOMEN: Soft No tenderness. EXTREMITIES: Bilateral lower extremity edema. No calf tenderness. NEUROLOGICAL: Patient is awake, alert and oriented x3. Assessment: Bradycardia with frequent PACs and PVCs Fall with possible syncope Increased fatigue and shortness of breath worsening over the past couple months Chronic heart failure unknown EF Chronic lower extremity edema Chest soreness secondary to fall, musculoskeletal Paroxysmal atrial fibrillation currently in sinus rhythm History of coronary artery disease with previous stent done in 2020 Hypertension Hyperlipidemia Obesity with BMI of 33. Plan: Resume patient's home cardiac medications With the following changes Increase Farxiga to 10 mg daily Add aspirin 81 mg daily Obtain A1c, lipid panel Telemetry monitoring Obtain carotid duplex Obtain 2-D echocardiogram and Doppler study to assess cardiac structure and function Further recommendations to follow based upon clinical course Thank you kindly for this consultation. Nurse practitioner note has been reviewed, I agree with documented findings and plan of care. Patient was seen and examined. Past Medical History Past Medical History: Asthma, Coronary Artery Disease (CAD), Chest Pain / Angina, Hyperlipidemia, Hypertension Additional Past Medical History / Comment(s): partial left lung collaspe History of Any Multi-Drug Resistant Organisms: None Reported Past Surgical History: Heart Catheterization, Heart Catheterization With Stent, Joint Replacement, Orthopedic Surgery Additional Past Surgical History / Comment(s): lamenectomy, carpal tunnel, cataracts Date of Last Stent Placement:: 2021 Past Psychological History: No Psychological Hx Reported Smoking Status: Current some day smoker Past Alcohol Use History: Occasional Past Drug Use History: None Reported Medications and Allergies Home Medications Medication Instructions Recorded Confirmed Type Albuterol Inhaler [Ventolin Hfa 2 puff INHALATION RT-Q4H PRN 02/01/23 02/27/25 History Inhaler] Albuterol Nebulized [Ventolin 2.5 mg INHALATION DIRECTED 02/01/23 02/27/25 History Nebulized] Aspirin EC [Ecotrin] 325 mg PO HS 02/01/23 02/27/25 History Atorvastatin [Lipitor] 40 mg PO HS 02/01/23 02/27/25 History Finasteride [Proscar] 5 mg PO DAILY 02/01/23 02/27/25 History Montelukast [Singulair] 10 mg PO HS 02/01/23 02/27/25 History Mv-Min/Folic/K1/Lycopen/Lutein 1 tab PO DAILY 02/01/23 02/27/25 History [Centrum Silver Men Tablet] Nitroglycerin Sl Tabs [Nitrostat] 0.4 mg SUBLINGUAL Q5M PRN 02/01/23 02/27/25 History Tamsulosin [Flomax] 0.4 mg PO DAILY 02/01/23 02/27/25 History Topiramate [Topamax] 25 mg PO DAILY 02/01/23 02/27/25 History Zolpidem [Ambien] 5 mg PO HS 02/01/23 02/27/25 History lisinopriL [Prinivil] 20 mg PO DAILY 02/01/23 02/27/25 History metFORMIN HCL ER [Glucophage XR] 500 mg PO DIRECTED 02/01/23 02/27/25 History rOPINIRole HCL [Requip] 2 mg PO BID 02/01/23 02/27/25 History rOPINIRole HCL [Requip] 2 mg PO DAILY PRN 02/01/23 02/27/25 History traZODone HCL [Desyrel] 50 mg PO HS PRN 02/01/23 02/27/25 History Dabigatran Etexilate Mesylate 150 mg PO BID 02/27/25 02/27/25 History [Dabigatran Etexilate] Empagliflozin [Jardiance] 10 mg PO DAILY 02/27/25 02/27/25 History Insulin Degludec [Tresiba 20 units SQ DAILY 02/27/25 02/27/25 History Flextouch U-100 Pen] Metoprolol Succinate [Metoprolol 25 mg PO DAILY 02/27/25 02/27/25 History Succinate ER] Omeprazole 20 mg PO DAILY 02/27/25 02/27/25 History Spironolactone [Aldactone] 25 mg PO DAILY 02/27/25 02/27/25 History Allergies Allergy/AdvReac Type Severity Reaction Status Date / Time No Known Allergies Allergy Verified 02/27/25 20:23 Physical Exam Vitals: Vital Signs Temp Pulse Pulse Resp BP BP BP 04/17/25 11:45 44 L 02/28/25 11:33 44 L 02/28/25 10:35 43 L 15 02/28/25 08:46 72 02/28/25 08:31 72 02/28/25 07:35 97.6 F 52 L 15 128/77 02/28/25 03:04 58 L 02/28/25 01:06 97.9 F 02/28/25 00:52 58 L 16 110/72 02/27/25 23:28 98.4 F 76 18 126/83 02/27/25 22:42 66 18 133/88 02/27/25 20:00 71 18 121/89 02/27/25 19:29 66 02/27/25 19:20 64 02/27/25 18:29 73 16 125/101 02/27/25 17:14 97.5 F L 45 L 22 175/91 Pulse Ox 02/28/25 11:45 02/28/25 11:33 02/28/25 10:35 02/28/25 08:46 02/28/25 08:31 02/28/25 07:35 94 L 02/28/25 03:04 02/28/25 01:06 02/28/25 00:52 93 L 02/27/25 23:28 95 02/27/25 22:42 96 02/27/25 20:00 95 02/27/25 19:29 02/27/25 19:20 02/27/25 18:29 96 02/27/25 17:14 95 Intake and Output 02/27/25 02/28/25 02/28/25 22:59 06:59 14:59 Other: Voiding Method Toilet # Voids 2 Weight 106.594 kg Results 02/27/25 18:26 02/27/25 18:26 Cardiac Enzymes 02/27/25 02/27/25 Range/Units 18:26 18:26 AST 31 (17-59) U/L Troponin I <0.012 (0.000-0.034) ng/mL Coagulation 02/27/25 Range/Units 18:26 PT 11.6 (10.0-12.5) sec APTT 34.0 H (22.0-30.0) sec CBC 02/27/25 Range/Units 18:26 WBC 6.58 (4.50-10.00) 10*3/uL RBC 4.38 L (4.40-5.60) 10*6/uL Hgb 14.8 (13.0-17.0) g/dL Hct 42.2 (39.6-50.0) % Plt Count 183 (140-440) 10*3/uL Comprehensive Metabolic Panel 02/27/25 Range/Units 18:26 Sodium 138 (137-145) mmol/L Potassium 4.1 (3.5-5.1) mmol/L Chloride 108 H (98-107) mmol/L Carbon Dioxide 23 (22-30) mmol/L BUN 12 (9-20) mg/dL Creatinine 0.68 (0.66-1.25) mg/dL Glucose 99 (74-99) mg/dL Calcium 9.4 (8.4-10.2) mg/dL AST 31 (17-59) U/L ALT 37 (4-49) U/L Alkaline Phosphatase 85 (38-126) U/L Total Protein 6.4 (6.3-8.2) g/dL Albumin 4.1 (3.5-5.0) g/dL Current Medications Generic Name Dose Route Start Last Admin Trade Name Freq PRN Reason Stop Dose Admin Acetaminophen 650 mg 02/27/25 22:47 02/28/25 10:51 Acetaminophen Tab 325 Mg Tab PO 650 mg Q6HR PRN Administration Mild Pain or Fever > 100.5 Al Hydroxide/Mg Hydroxide 15 ml 02/27/25 22:47 Mag Hydrox/Al Hydrox/Simeth 30 Ml Cup PO Q6HR PRN Indigestion Albuterol Sulfate 2.5 mg 02/27/25 22:54 02/28/25 11:33 Albuterol Nebulized 2.5 Mg/3 Ml INHALATION 2.5 mg RT-Q4H PRN Administration Shortness Of Breath Or Wheezing Alprazolam 0.25 mg 02/27/25 22:47 Alprazolam 0.25 Mg Tab PO Q6HR PRN Anxiety Aspirin 325 mg 02/27/25 23:00 02/27/25 23:36 Aspirin 325 Mg Tab PO 325 mg HS DIXIE Administration Atorvastatin Calcium 40 mg 02/27/25 23:00 02/27/25 23:36 Atorvastatin 40 Mg Tab PO 40 mg HS DIXIE Administration Calcium Carbonate/Glycine 1,000 mg 02/27/25 22:47 Calcium Carbonate 500 Mg Chewable PO Q4HR PRN Dyspepsia Dabigatran 150 mg 02/27/25 23:00 02/28/25 08:20 Dabigatran 150 Mg Cap PO 150 mg BID DIXIE Administration Protocol Dapagliflozin 5 mg 02/28/25 09:00 02/28/25 08:21 Dapagliflozin Propanediol 5 Mg Tablet PO 5 mg DAILY DIXIE Administration Famotidine 20 mg 02/28/25 09:00 02/28/25 08:21 Famotidine 20 Mg Tab PO 20 mg BID DIXIE Administration Finasteride 5 mg 02/28/25 09:00 02/28/25 08:21 Finasteride 5 Mg Tab PO 5 mg DAILY DIXIE Administration Hydromorphone HCl 1 mg 02/28/25 00:26 02/28/25 05:44 Hydromorphone 2 Mg/Ml 1 Ml Syringe IVP 1 mg Q3HR PRN Administration Severe Pain (Scale 7 to 10) Sodium Chloride 1,000 mls @ 100 mls/hr 02/28/25 10:15 02/28/25 10:35 Saline 0.9% IV 100 mls/hr .Q10H DIXIE Administration Insulin Glargine 20 unit 02/28/25 07:00 02/28/25 08:20 Insulin Glargine (Lantus) 100 Unit/Ml Syr SQ 20 unit DAILY@0700 DIXIE Administration Lisinopril 20 mg 02/28/25 09:00 02/28/25 08:21 Lisinopril 20 Mg Tab PO 20 mg DAILY DIXIE Administration Metformin HCl 250 mg 02/27/25 23:00 02/28/25 08:20 Metformin 500 Mg Tab PO 250 mg BID-W/MEALS DIXIE Administration Methocarbamol 500 mg 02/27/25 22:49 02/28/25 05:53 Methocarbamol 500 Mg Tab PO 500 mg QID PRN Administration Muscle Spasm Metoprolol Succinate 25 mg 02/28/25 09:00 02/28/25 08:21 Metoprolol Succinate (Er) 25 Mg Tab.Er.24h PO Not Given DAILY DIXIE Montelukast Sodium 10 mg 02/27/25 23:00 02/27/25 23:40 Montelukast 10 Mg Tab PO 10 mg HS DIXIE Administration Multivitamins 1 each 02/28/25 09:00 02/28/25 08:21 Multivitamins, Thera 1 Each Tab PO 1 each DAILY DIXIE Administration Naloxone HCl 0.2 mg 02/27/25 22:47 Naloxone 0.4 Mg/Ml 1 Ml Vial IV Q2M PRN Opioid Reversal Nitroglycerin 0.4 mg 02/27/25 22:50 Nitroglycerin Sl Tabs 0.4 Mg Tab SUBLINGUAL Q5M PRN Chest Pain Ondansetron HCl 4 mg 02/27/25 22:47 Ondansetron 4 Mg/2 Ml Vial IVP Q8HR PRN Nausea And Vomiting Pantoprazole Sodium 40 mg 02/28/25 07:30 02/28/25 08:21 Pantoprazole 40 Mg Tablet PO 40 mg [id number] DIXIE Administration Ropinirole HCl 2 mg 02/27/25 22:50 Ropinirole Hcl 1 Mg Tab PO DAILY PRN RESTLESS LEGS Ropinirole HCl 2 mg 02/27/25 23:00 02/28/25 08:19 Ropinirole Hcl 1 Mg Tab PO 2 mg BID DIXIE Administration Spironolactone 25 mg 02/28/25 09:00 02/28/25 08:21 Spironolactone 25 Mg Tab PO 25 mg DAILY DIXIE Administration Tamsulosin HCl 0.4 mg 02/28/25 09:00 02/28/25 08:21 Tamsulosin 0.4 Mg Cap.Er.24h PO 0.4 mg DAILY DIXIE Administration Topiramate 25 mg 02/28/25 09:00 02/28/25 08:21 Topiramate 25 Mg Tab PO 25 mg DAILY DIXIE Administration Tramadol HCl 50 mg 02/27/25 22:47 02/28/25 06:39 Tramadol 50 Mg Tab PO 50 mg Q6H PRN Administration Moderate Pain (Scale 4 to 6) Trazodone HCl 50 mg 02/27/25 22:50 Trazodone Hcl 50 Mg Tab PO HS PRN SLEEP Zolpidem Tartrate 5 mg 02/27/25 23:00 02/27/25 23:40 Zolpidem 5 Mg Tab PO 5 mg HS DIXIE Administration Intake and Output 02/27/25 02/28/25 02/28/25 22:59 06:59 14:59 Other: Voiding Method Toilet # Voids 2 Weight 106.594 kg 02/27/25 18:26 02/27/25 18:26
[2025-02-28 17:13] LABS: Glucose,Whole Blood 98 mg/dL (70-110)
[2025-02-28 19:52] LABS: Glucose,Whole Blood 156 mg/dL (70-110)
--- NOTE | 2025-02-28 20:10 | P.HPIM ---
History of Present Illness H&P Date: 02/28/25 Chief Complaint: Fall with right-sided rib contusion HISTORY OF PRESENT ILLNESS: This is a 74-year-old male with a previous medical history significant for coronary artery disease status post PCI of the LAD 10/31/2020, hypertension and hypertensive cardiovascular disease, mixed hyperlipidemia, diabetes mellitus type 2, allergic rhinitis, migraine headache, mild intermittent asthma, enlarged prostate, restless leg syndrome, patient presented to the emergency department at [facility] yesterday after he had fallen in the backyard while he was working on the [employer] at 3:00 in the afternoon, apparently the patient turned and he hit the curb and ended up landing on the right side, he had a significant contusion to the right side of his chest wall, as well as his right wrist and right knee, patient was evaluated at the emergency department at [facility] had a battery of testing including CT scan of the brain and cervical spine did not show evidence of acute abnormalities or intracranial bleed at this time, he had x-rays as well as CT of the chest abdomen pelvis that did not show any evidence of any acute fracture or any visceral injuries, but the patient was tremendous amount of pain he was receiving Dilaudid 1 mg IV push every 3 hours for pain control, he was splinting the right side, he was started on incentive spirometer, the patient apparently had episode of bradycardia with heart rate in the low 40s, his blood pressure was okay, patient was complaining of increased dizziness and lightheadedness, he was feeling like he was going to pass out, patient did not pass out according to himself but he He was not sure, patient was admitted to the hospital for evaluation repeated CT scan of the brain in the morning did not show evidence of acute infarct or bleed, he patient was placed on the monitor, cardiology consultation was obtained, who recommended ultrasound carotid as well as echocardiogram REVIEW OF SYSTEMS: Constitutional: No documented fever, no chills, no night sweats. No weight change. No weakness, fatigue or lethargy. No daytime sleepiness. EENT: positive for headache. No blurred vision or double vision, no loss of vision. No loss of Hearing, no ringing in the ears, no dizziness. No nasal drainage or congestion. No epistaxis. No sore throat. Lungs: positive for shortness of breath, no cough, no sputum production. No wheezing. Reports dyspnea with activity. Cardiovascular: No chest pain, no lower extremity edema. No palpitations. No paroxysmal nocturnal dyspnea. No orthopnea. No lightheadedness or dizziness. No syncopal episodes. Abdominal: Reports abdominal pain. No nausea, vomiting. No diarrhea. No constipation. No bloody or tarry stools reports loss of appetite. Genitourinary: No dysuria, increased frequency, urgency. No urinary retention. Musculoskeletal: No myalgias. positive for muscle weakness, no gait dysfunction, no frequent falls. positive for back pain. positive for neck pain, right sided chest wall pain, eight wrist pain, right knee pain Integumentary: No wounds, no lesions. No rash or pruritus. No unusual bruising. No change in hair or nails. Neurologic: No aphasia. No facial droop. No change in mentation. No head injury. positive for headache. No paralysis. No paresthesia. Psychiatric: No depression. No anxiety. No mood swings. Endocrine: No abnormal blood sugars. No weight change. PAST MEDICAL HISTORY: Coronary artery disease status post PCI of the LAD 10/31/2020 Hypertension and hypertensive cardiovascular disease. Mixed hyperlipidemia. Diabetes mellitus type 2. Enlarged prostate. Allergic rhinitis. Mild intermittent asthma. Migraine headaches. Restless leg syndrome. Osteoarthritis. Paroxysmal atrial fibrillation PAST SURGICAL HISTORY: L1 L5 laminectomy with fusion 2016 Bilateral ankle replacement 2 x 1999 and 2005 right knee replacement 2019 Cataract surgery x 2 Left heart catheterization with PCI of the LAD 10/31/2020 SOCIAL HISTORY: Patient smokes cigars once in a while but not on a regular basis, he denies any cigarette use, he denies any marijuana use, he drinks alcohol daily. FAMILY HISTORY: Father at age of 54 from non-Hodgkin lymphoma as well as leukemia and also had a bone cancer mother at the age of 82 from ovarian cancer patient has a twin sister kayode and the younger sister with breast cancer post bilateral mastectomy PHYSICAL EXAMINATION: General: 74-year-old male laying down in bed in bed in minimal distress. HEENT: Head is atraumatic, normocephalic, pupils were equal round reactive to light and recommendation, extraocular muscle movement were intact, sclera nonicteric, conjunctivae were pale, mucous membranes of the mouth are somewhat dry. Neck: Supple, no JVP, normal carotid upstroke bilaterally, no lymphadenopathy. Chest: Decreased breath sounds at the bases, few rhonchi, no expiratory wheezes, positive for right-sided chest wall tenderness, no intercostal retractions. Heart: First heart sound is normal, second heart sounds normal there is systolic ejection murmur 2/6 located in the left sternal border. Abdomen: Soft, nontender, nondistended, positive bowel sounds. Extremities: There is no edema no calf tenderness DP +2 bilaterally. Neurologic examination: Patient is awake alert and oriented x3, cranial nerves II-12 appear grossly intact, muscle power were 5 out of 5 in upper extremities and 5 out of 5 in bilateral lower extremities, deep tendon reflexes normal bilaterally. ASSESSMENT AND PLAN: 1. Status post fall with significant contusion to the right side of the chest wall, right wrist and right knee without evidence of obvious fracture I reviewed the CT scan of the brain from the morning as well as from yesterday CT scan of the cervical spine CT scan of the chest abdomen pelvis as well as x-rays of the hand pelvis and right knee no evidence of any fracture at this time, continue current pain management decrease Dilaudid to 0.5 mg IV push every 3 hours as needed, continue the patient on IV fluid resuscitation in the form of normal saline at 100 cc an hour, hold beta-josé miguel because of the patient bradycardic, cardiology consultation, follow-up with the patient very closely. 2. Possible syncopal episode patient was seen in consultation by cardiology twelve-lead EKG was reviewed, telemetry, echocardiogram will be done, ultrasound of the carotid did not show evidence of any hemodynamically significant stenosis. 3. Coronary artery disease status post PCI of the LAD the patient on aspirin 81 mg once every day, continue metoprolol ER 25 mg at bedtime, continue atorvastatin 40 mg once every day, monitor the patient lipid panel, keep LDL 55- 70. Patient has been following with Dr. Boogie 4. Hypertension and hypertensive cardiovascular disease. Continue patient on lisinopril 20 mg orally twice every day, continue metoprolol ER 25 mg at bedtime monitor the patient blood pressure very closely. 5. Mixed hyperlipidemia. Continue atorvastatin 40 mg once every day, monitor lipid panel, keep LDL 55-70. 6. Enlarged prostate. Monitor the patient for urinary retention. Flomax 0.4 mg orally once every day as well as finasteride 5 mg orally once every day. 7. Mild intermittent asthma asthma. Continue patient on albuterol HFA 2 puffs elation every 4 hours as needed, continue montelukast 10 mg at bedtime for 8. migraine headaches. Continue patient on current treatment plan. Continue topiramate 25 mg orally once every day. 9. Restless leg syndrome continue patient on ropinirole 2 mg orally 3 times every day. 10. Paroxysmal atrial fibrillation currently in sinus rhythm. Continue patient on dabigatran 150 mg orally twice every day , continue metoprolol ER 25 mg at bedtime. 11. Obesity with obstructive sleep apnea. Patient does not have a CPAP at this time. 12. Diabetes mellitus type II. Continue patient on Lantus 20 units at bedtime along with sliding scale insulin hold metformin for the next 48 hours. 13. DVT prophylaxis. Patient is currently on Pradaxa 150 mg orally twice every day. 14. GI prophylaxis. Continue Protonix 40 mg orally once every day. 15. Insomnia. Continue patient on trazodone 50 mg at bedtime along with zolpidem 5 mg once at bedtime. 16. Observation. 17. Patient is full code Past Medical History Past Medical History: Asthma, Coronary Artery Disease (CAD), Chest Pain / Angina, Hyperlipidemia, Hypertension Additional Past Medical History / Comment(s): partial left lung collaspe History of Any Multi-Drug Resistant Organisms: None Reported Past Surgical History: Heart Catheterization, Heart Catheterization With Stent, Joint Replacement, Orthopedic Surgery Additional Past Surgical History / Comment(s): lamenectomy, carpal tunnel, cataracts Date of Last Stent Placement:: 2021 Past Psychological History: No Psychological Hx Reported Smoking Status: Current some day smoker Past Alcohol Use History: Occasional Past Drug Use History: None Reported Medications and Allergies Home Medications Medication Instructions Recorded Confirmed Type Albuterol Inhaler [Ventolin Hfa 2 puff INHALATION RT-Q4H PRN 02/01/23 02/27/25 H istory Inhaler] Albuterol Nebulized [Ventolin 2.5 mg INHALATION DIRECTED 02/01/23 02/27/25 History Nebulized] Aspirin EC [Ecotrin] 325 mg PO HS 02/01/23 02/27/25 History Atorvastatin [Lipitor] 40 mg PO HS 02/01/23 02/27/25 History Finasteride [Proscar] 5 mg PO DAILY 02/01/23 02/27/25 History Montelukast [Singulair] 10 mg PO HS 02/01/23 02/27/25 History Mv-Min/Folic/K1/Lycopen/Lutein 1 tab PO DAILY 02/01/23 02/27/25 History [Centrum Silver Men Tablet] Nitroglycerin Sl Tabs [Nitrostat] 0.4 mg SUBLINGUAL Q5M PRN 02/01/23 02/27/25 History Tamsulosin [Flomax] 0.4 mg PO DAILY 02/01/23 02/27/25 History Topiramate [Topamax] 25 mg PO DAILY 02/01/23 02/27/25 History Zolpidem [Ambien] 5 mg PO HS 02/01/23 02/27/25 History lisinopriL [Prinivil] 20 mg PO DAILY 02/01/23 02/27/25 History metFORMIN HCL ER [Glucophage XR] 500 mg PO DIRECTED 02/01/23 02/27/25 History rOPINIRole HCL [Requip] 2 mg PO BID 02/01/23 02/27/25 History rOPINIRole HCL [Requip] 2 mg PO DAILY PRN 02/01/23 02/27/25 History traZODone HCL [Desyrel] 50 mg PO HS PRN 02/01/23 02/27/25 History Dabigatran Etexilate Mesylate 150 mg PO BID 02/27/25 02/27/25 History [Dabigatran Etexilate] Empagliflozin [Jardiance] 10 mg PO DAILY 02/27/25 02/27/25 History Insulin Degludec [Tresiba 20 units SQ DAILY 02/27/25 02/27/25 History Flextouch U-100 Pen] Metoprolol Succinate [Metoprolol 25 mg PO DAILY 02/27/25 02/27/25 History Succinate ER] Omeprazole 20 mg PO DAILY 02/27/25 02/27/25 History Spironolactone [Aldactone] 25 mg PO DAILY 02/27/25 02/27/25 History Allergies Allergy/AdvReac Type Severity Reaction Status Date / Time No Known Allergies Allergy Verified 02/27/25 20:23 Physical Exam Vitals: Vital Signs Temp Pulse Pulse Pulse Resp BP BP 02/28/25 13:19 97.8 F 49 L 16 121/69 02/28/25 12:32 97.8 F 45 L 18 107/67 02/28/25 11:45 44 L 02/28/25 11:33 44 L 02/28/25 10:35 43 L 15 02/28/25 08:46 72 02/28/25 08:31 72 02/28/25 07:35 97.6 F 52 L 15 128/77 02/28/25 03:04 58 L 02/28/25 01:06 97.9 F 02/28/25 00:52 58 L 16 02/27/25 23:28 98.4 F 76 18 126/83 02/27/25 22:42 66 18 133/88 02/27/25 20:00 71 18 121/89 02/27/25 19:29 66 02/27/25 19:20 64 02/27/25 18:29 73 16 125/101 02/27/25 17:14 97.5 F L 45 L 22 175/91 BP Pulse Ox 02/28/25 13:19 93 L 02/28/25 12:32 94 L 02/28/25 11:45 02/28/25 11:33 02/28/25 10:35 02/28/25 08:46 02/28/25 08:31 02/28/25 07:35 94 L 02/28/25 03:04 02/28/25 01:06 02/28/25 00:52 110/72 93 L 02/27/25 23:28 95 02/27/25 22:42 96 02/27/25 20:00 95 02/27/25 19:29 02/27/25 19:20 02/27/25 18:29 96 02/27/25 17:14 95 Intake and Output 02/27/25 02/28/25 02/28/25 22:59 06:59 14:59 Other: Voiding Method Toilet # Voids 2 Weight 106.594 kg Results CBC & Chem 7: 02/27/25 18:26 02/27/25 18:26 Labs: Abnormal Lab Results - Last 24 Hours (Table) 02/27/25 02/27/25 02/27/25 Range/Units 18:26 18:26 18:26 RBC 4.38 L (4.40-5.60) 10*6/uL MCH 33.8 H (27.0-32.0) pg APTT 34.0 H (22.0-30.0) sec Chloride 108 H (98-107) mmol/L POC Glucose (mg/dL) (70-110) mg/dL 02/28/25 02/28/25 Range/Units 07:06 12:36 RBC (4.40-5.60) 10*6/uL MCH (27.0-32.0) pg APTT (22.0-30.0) sec Chloride (98-107) mmol/L POC Glucose (mg/dL) 159 H 137 H (70-110) mg/dL Thrombosis Risk Factor Assmnt - Choose All That Apply Any of the Below Risk Factors Present?: Yes Each Factor Represents 1 point: Swollen legs (current) Other Risk Factors: Yes Each Risk Factor Represents 2 Points: Age 61-74 years Other congenital or acquired thrombophilia - If yes, enter type in comment: No Thrombosis Risk Factor Assessment Total Risk Factor Score: 3 Thrombosis Risk Factor Assessment Level: Moderate Risk
[2025-02-28] MEDS: ASPIRIN 81 MG PO SCH (21:00)
[2025-03-01] MEDS: HYDROmorphone 0.5 MG/0.5 ML SYRINGE IVP PRN (06:52)
[2025-03-01 07:07] LABS: Glucose,Whole Blood 114 mg/dL (70-110)
[2025-03-01] MEDS: INSULIN LISPRO (HumaLOG) 100 UNIT/ML 10 mL VL SQ SCH (08:00)
[2025-03-01] MEDS: DAPAGLIFLOZIN PROPANEDIOL 10 MG TABLET PO SCH (08:04)
[2025-03-01 08:16] LABS: Basophils # (A) 0.03 X 10*3/uL (0.00-0.10); Basophils % (A) 0.6 %; Eosinophils # (A) 0.08 X 10*3/uL (0.04-0.35); Eosinophils % (A) 1.5 %; HCT 40.8 % (39.6-50.0); HGB 13.6 g/dL (13.0-17.0); Lymphocytes # (A) 1.16 X 10*3/uL (0.90-5.00); MCH 33.3 pg (27.0-32.0); MCHC 33.3 g/dL (32.0-37.0); Mean Platelet Volume 10.4 FL (9.5-12.2); Monocytes # (A) 0.53 X 10*3/uL (0.20-1.00); Monocytes % (A) 10.1 %; NRBC Per 100 WBC 0 X 10*3/uL (0.00-0.01); Neutrophils # (A) 3.45 X 10*3/uL (1.80-7.70); Neutrophils % (A) 65.4 %; Platelet Count 180 X 10*3/uL (140-440); RBC 4.08 X 10*6/uL (4.40-5.60); RDW 14.4 % (11.5-14.5); WBC 5.27 X 10*3/uL (4.50-10.00)
[2025-03-01 09:56] LABS: ALT 31 U/L (10-49); AST 26 U/L (14-35); Albumin 3.9 g/dL (3.8-4.9); Albumin/Globulin Ratio 1.95 Ratio (1.60-3.17); Alkaline Phosphatase 84 U/L (41-126); BUN/Creat Ratio 13.88 Ratio (12.00-20.00); Blood Urea Nitrogen 11.1 mg/dL (9.0-27.0); Calcium 8.7 mg/dL (8.7-10.3); Carbon Dioxide 22.4 mmol/L (21.6-31.8); Chloride 110 mmol/L (96-109); Creatine Kinase 134 U/L (35-257); Glucose 126 mg/dL (70-110); Potassium 4.3 mmol/L (3.5-5.5); Sodium 142 mmol/L (135-145); Total Bilirubin 0.5 mg/dL (0.3-1.2); Total Protein 5.9 g/dL (6.2-8.2)
--- NOTE | 2025-03-01 11:02 | CA ---
Transthoracic Echo Report Name: Inocencio Segundo Age: 74 Gender: M : 1950 Exam Date: 02/28/2025 14:02 Exam Location: [facility] Ht (in): 70 Wt (lb): 235 Ordering Physician: Jennie Hurd Attending/Referring Phys: [id number], Vannessa Boat Master Mounika Clayton RDCS Procedure CPT: Indications: LVF Cardiac Hx: Technical Quality: Poor, Technically difficult study Contrast 1: Definity Total Dose (mL): 2 Contrast 2: Total Dose (mL): MEASUREMENTS (Male / Female) Normal Values 2D ECHO LV Diastolic Diameter PLAX 5.0 cm 4.2 - 5.9 / 3.9 - 5.3 cm LV Systolic Diameter PLAX 2.8 cm IVS Diastolic Thickness 1.4 cm 0.6 - 1.0 / 0.6 - 0.9 cm LVPW Diastolic Thickness 1.5 cm 0.6 - 1.0 / 0.6 - 0.9 cm LV Relative Wall Thickness 0.6 RV Internal Dim ED PLAX 2.6 cm LA Systolic Diameter LX 3.9 cm 3.0 - 4.0 / 2.7 - 3.8 cm LA Volume 74.1 cm??? 18 - 58 / 22 - 52 cm??? LA Volume Index 31.8 cm???/m??? 16 - 28 cm???/m??? M-MODE Aortic Root Diameter MM 3.9 cm LA Systolic Diameter MM 4.2 cm LA Ao Ratio MM 1.1 AV Cusp Separation MM 1.9 cm DOPPLER AV Peak Velocity 232.1 cm/s AV Peak Gradient 21.5 mmHg AV Mean Velocity 137.6 cm/s AV Mean Gradient 11.7 mmHg AV Velocity Time Integral 34.8 cm AI Peak Velocity 274.3 cm/s AI Peak Gradient 30.1 mmHg AI Pressure Half Time 913.8 ms LVOT Peak Velocity 144.1 cm/s LVOT Peak Gradient 8.3 mmHg LVOT Velocity Time Integral 23.9 cm MV Area PHT 2.5 cm??? Mitral E Point Velocity 79.0 cm/s Mitral A Point Velocity 84.9 cm/s Mitral E to A Ratio 0.9 MV Deceleration Time 307.2 ms TR Peak Velocity 259.6 cm/s TR Peak Gradient 27.0 mmHg Right Atrial Pressure 10.0 mmHg Pulmonary Artery Systolic Pressu 37.0 mmHg Right Ventricular Systolic Press 37.0 mmHg FINDINGS Left Ventricle Left ventricular ejection fraction is estimated at 50-55 %. Mildly increased septal wall thickness. Left ventricular cavity size normal. Mildly reduced global left ventricular systolic function. Right Ventricle Normal right ventricular size and function. Mild pulmonary hypertension. Right Atrium Mild right atrial dilatation. Left Atrium Mildly increased left atrial volume. Mildly increased left atrial area. Mitral Valve Structurally normal mitral valve. Trace mitral regurgitation. No mitral stenosis. Aortic Valve Mild aortic stenosis with a peak gradient of 22mmHg and a mean gradient of 12 mmHg. Trace to mild aortic regurgitation. Tricuspid Valve Structurally normal tricuspid valve. Mild tricuspid regurgitation. No tricuspid stenosis. Pulmonic Valve Structurally normal pulmonic valve. Trace pulmonic regurgitation. No pulmonic stenosis. Pericardium No pericardial or pleural effusion. Aorta Mild aortic dilatation at the level of the sinuses of valsalva (root). CONCLUSIONS Technically difficult study with poor acoustic windows LVEF 50 to 55% Mild concentric LVH Mild biatrial dilatation Mild aortic stenosis with mean gradient of 12 mmHg, mild aortic regurgitation Mild tricuspid regurgitation RVSP estimated 37 mmHg Aortic root measured at 3.9 cm, upper limit of normal Previewed by: Dr Laci Mosquera (Electronically Signed) Final Date: 01 March 2025 11:02
--- NOTE | 2025-03-01 12:01 | P.PN ---
Subjective Progress Note Date: 03/01/25 HISTORY OF PRESENT ILLNESS: This is a 74-year-old male with a previous medical history significant for coronary artery disease status post PCI of the LAD 10/31/2020, hypertension and hypertensive cardiovascular disease, mixed hyperlipidemia, diabetes mellitus type 2, allergic rhinitis, migraine headache, mild intermittent asthma, enlarged prostate, restless leg syndrome, patient presented to the emergency department at [facility] yesterday after he had fallen in the backyard while he was working on the [employer] at 3:00 in the afternoon, apparently the patient turned and he hit the curb and ended up landing on the right side, he had a significant contusion to the right side of his chest wall, as well as his right wrist and right knee, patient was evaluated at the emergency department at [facility] had a battery of testing including CT scan of the brain and cervical spine did not show evidence of acute abnormalities or intracranial bleed at this time, he had x-rays as well as CT of the chest abdomen pelvis that did not show any evidence of any acute fracture or any visceral injuries, but the patient was tremendous amount of pain he was receiving Dilaudid 1 mg IV push every 3 hours for pain control, he was splinting the right side, he was started on incentive spirometer, the patient apparently had episode of bradycardia with heart rate in the low 40s, his blood pressure was okay, patient was complaining of increased dizziness and lightheadedness, he was feeling like he was going to pass out, patient did not pass out according to himself but he He was not sure, patient was admitted to the hospital for evaluation repeated CT scan of the brain in the morning did not show evidence of acute infarct or bleed, he patient was placed on the monitor, cardiology consultation was obtained, who recommended ultrasound carotid as well as echocardiogram 03/01: Patient is sitting up in bed in no apparent distress, he continues to have some pain in the right side of the chest wall, he is using incentive spirometer, he is ambulating using a walker, his pain is better than yesterday, will continue with current treatment plan, monitor the patient's symptoms very ashley sely, I believe the patient is medically stable to be discharged home, I will send him home today and follow-up with me as an outpatient next week. Patient underwent ultrasound the carotid that showed mild IMT without evidence of hemodynamically significant stenosis, echocardiogram showed ejection fraction of 50 to 55% with mild LVH, mild biatrial enlargement, mild aortic valve stenosis with a mean gradient of 12 mmHg, and mild aortic regurgitation, mild tricuspid regurgitation, no wall motion abnormalities. REVIEW OF SYSTEMS: Constitutional: No documented fever, no chills, no night sweats. No weight change. No weakness, fatigue or lethargy. No daytime sleepiness. EENT: positive for headache. No blurred vision or double vision, no loss of vision. No loss of Hearing, no ringing in the ears, no dizziness. No nasal drainage or congestion. No epistaxis. No sore throat. Lungs: positive for shortness of breath, no cough, no sputum production. No wheezing. Reports dyspnea with activity. Cardiovascular: No chest pain, no lower extremity edema. No palpitations. No paroxysmal nocturnal dyspnea. No orthopnea. No lightheadedness or dizziness. No syncopal episodes. Abdominal: Reports abdominal pain. No nausea, vomiting. No diarrhea. No constipation. No bloody or tarry stools reports loss of appetite. Genitourinary: No dysuria, increased frequency, urgency. No urinary retention. Musculoskeletal: No myalgias. positive for muscle weakness, no gait dysfunction, no frequent falls. positive for back pain. positive for neck pain, right sided chest wall pain, eight wrist pain, right knee pain Integumentary: No wounds, no lesions. No rash or pruritus. No unusual bruising. No change in hair or nails. Neurologic: No aphasia. No facial droop. No change in mentation. No head injury. positive for headache. No paralysis. No paresthesia. Psychiatric: No depression. No anxiety. No mood swings. Endocrine: No abnormal blood sugars. No weight change. PHYSICAL EXAMINATION: General: 74-year-old male laying down in bed in bed in minimal distress. HEENT: Head is atraumatic, normocephalic, pupils were equal round reactive to light and recommendation, extraocular muscle movement were intact, sclera nonicteric, conjunctivae were pale, mucous membranes of the mouth are somewhat dry. Neck: Supple, no JVP, normal carotid upstroke bilaterally, no lymphadenopathy. Chest: Decreased breath sounds at the bases, few rhonchi, no expiratory wheezes, positive for right-sided chest wall tenderness, no intercostal retractions. Heart: First heart sound is normal, second heart sounds normal there is systolic ejection murmur 2/6 located in the left sternal border. Abdomen: Soft, nontender, nondistended, positive bowel sounds. Extremities: There is no edema no calf tenderness DP +2 bilaterally. Neurologic examination: Patient is awake alert and oriented x3, cranial nerves II-12 appear grossly intact, muscle power were 5 out of 5 in upper extremities a nd 5 out of 5 in bilateral lower extremities, deep tendon reflexes normal bilaterally. ASSESSMENT AND PLAN: 1. Status post fall with significant contusion to the right side of the chest wall, right wrist and right knee without evidence of obvious fracture I reviewed the CT scan of the brain from the morning as well as from yesterday CT scan of the cervical spine CT scan of the chest abdomen pelvis as well as x-rays of the hand pelvis and right knee no evidence of any fracture at this time, continue current pain management decrease Dilaudid to 0.5 mg IV push every 3 hours as needed, continue the patient on IV fluid resuscitation in the form of normal saline at 100 cc an hour, hold beta-josé miguel because of the patient bradycardic, cardiology consultation, follow-up with the patient very closely. 2. Possible syncopal episode patient was seen in consultation by cardiology twelve-lead EKG was reviewed, telemetry, echocardiogram will be done, ultrasound of the carotid did not show evidence of any hemodynamically significant stenosis. 3. Coronary artery disease status post PCI of the LAD the patient on aspirin 81 mg once every day, continue metoprolol ER 25 mg at bedtime, continue a torvastatin 40 mg once every day, monitor the patient lipid panel, keep LDL 55- 70. Patient has been following with Dr. Boogie 4. Hypertension and hypertensive cardiovascular disease. Continue patient on lisinopril 20 mg orally twice every day, continue metoprolol ER 25 mg at bedtime monitor the patient blood pressure very closely. 5. Mixed hyperlipidemia. Continue atorvastatin 40 mg once every day, monitor lipid panel, keep LDL 55-70. 6. Enlarged prostate. Monitor the patient for urinary retention. Flomax 0.4 mg orally once every day as well as finasteride 5 mg orally once every day. 7. Mild intermittent asthma asthma. Continue patient on albuterol HFA 2 puffs elation every 4 hours as needed, continue montelukast 10 mg at bedtime for 8. migraine headaches. Continue patient on current treatment plan. Continue topiramate 25 mg orally once every day. 9. Restless leg syndrome continue patient on ropinirole 2 mg orally 3 times every day. 10. Paroxysmal atrial fibrillation currently in sinus rhythm. Continue patient on dabigatran 150 mg orally twice every day , continue metoprolol ER 25 mg at bedtime. 11. Obesity with obstructive sleep apnea. Patient does not have a CPAP at this time. 12. Diabetes mellitus type II. Continue patient on Lantus 20 units at bedtime along with sliding scale insulin hold metformin for the next 48 hours. 13. DVT prophylaxis. Patient is currently on Pradaxa 150 mg orally twice every day. 14. GI prophylaxis. Continue Protonix 40 mg orally once every day. 15. Insomnia. Continue patient on trazodone 50 mg at bedtime along with zolpidem 5 mg once at bedtime. 16. Medically stable for discharge home today follow-up with me as an outpatient next week Objective - Vital Signs Vital signs: Vital Signs Temp 98 F 03/01/25 01:56 Pulse 68 03/01/25 01:56 Resp 17 03/01/25 01:56 BP 129/75 03/01/25 01:56 Pulse Ox 95 03/01/25 01:56 FiO2 Intake & Output 02/28/25 03/01/25 03/01/25 18:59 06:59 18:59 Other: Voiding Method Toilet # Voids 1 2 # Bowel Movements 1 - Labs CBC & Chem 7: 03/01/25 05:09 03/01/25 05:09 Labs: Abnormal Lab Results - Last 24 Hours (Table) 02/28/25 02/28/25 02/28/25 Range/Units 12:36 12:37 19:49 POC Glucose (mg/dL) 137 H 156 H (70-110) mg/dL Hemoglobin A1c 7.3 H (<=6.0) % 03/01/25 Range/Units 07:03 POC Glucose (mg/dL) 114 H (70-110) mg/dL Hemoglobin A1c (<=6.0) %
--- NOTE | 2025-03-01 12:03 | P.DS ---
Providers Date of admission: 02/27/25 22:48 Expected date of discharge: 03/01/25 Attending physician: Brendon Mitchell Consults: 02/28/25 11:15 Consult Physician Routine Consulting Provider: [facility] Consult Reason/Comments: Low HR Do you want consulting provider notified?: Yes Primary care physician: Brendon Mitchell [facility] Course: HISTORY OF PRESENT ILLNESS: This is a 74-year-old male with a previous medical history significant for coronary artery disease status post PCI of the LAD 10/31/2020, hypertension and hypertensive cardiovascular disease, mixed hyperlipidemia, diabetes mellitus type 2, allergic rhinitis, migraine headache, mild intermittent asthma, enlarged prostate, restless leg syndrome, patient presented to the emergency department at [facility] yesterday after he had fallen in the backyard while he was working on the [employer] at 3:00 in the afternoon, apparently the patient turned and he hit the curb and ended up landing on the right side, he had a significant contusion to the right side of his chest wall, as well as his right wrist and right knee, patient was evaluated at the emergency department at [facility] had a battery of testing including CT scan of the brain and cervical spine did not show evidence of acute abnormalities or intracranial bleed at this time, he had x-rays as well as CT of the chest abdomen pelvis that did not show any evidence of any acute fracture or any visceral injuries, but the patient was tremendous amount of pain he was receiving Dilaudid 1 mg IV push every 3 hours for pain control, he was splinting the right side, he was started on incentive spirometer, the patient apparently had episode of bradycardia with heart rate in the low 40s, his blood pressure was okay, patient was complaining of increased dizziness and lightheadedness, he was feeling like he was going to pass out, patient did not pass out according to himself but he He was not sure, patient was admitted to the hospital for evaluation repeated CT scan of the brain in the morning did not show evidence of acute infarct or bleed, he patient was placed on the monitor, cardiology consultation was obtained, who recommended ultrasound carotid as well as echocardiogram 03/01: Patient is sitting up in bed in no apparent distress, he continues to have some pain in the right side of the chest wall, he is using incentive spirometer, he is ambulating using a walker, his pain is better than yesterday, will continue with current treatment plan, monitor the patient's symptoms very closely, I believe the patient is medically stable to be discharged home, I will send him home today and follow-up with me as an outpatient next week. Patient underwent ultrasound the carotid that showed mild IMT without evidence of he modynamically significant stenosis, echocardiogram showed ejection fraction of 50 to 55% with mild LVH, mild biatrial enlargement, mild aortic valve stenosis with a mean gradient of 12 mmHg, and mild aortic regurgitation, mild tricuspid regurgitation, no wall motion abnormalities. Discharge diagnoses: 1. Status post fall with significant contusion to the right side of the chest wall, right wrist and right knee without evidence of obvious fracture 2. Possible syncopal . 3. Coronary artery disease status post PCI of the LAD 4. Hypertension and hypertensive cardiovascular disease. 5. Mixed hyperlipidemia. 6. Enlarged prostate. 7. Mild intermittent asthma asthma. 8. migraine headaches. 9. Restless leg syndrome 10. Paroxysmal atrial fibrillation 11. Obesity with obstructive sleep apnea. 12. Diabetes mellitus type II. 13. Mild aortic valve stenosis 14. Mild aortic regurgitation 15. Mild tricuspid regurgitation 16. Mild decrease of LV function 50-55% Patient Condition at Discharge: Stable Plan - Discharge Summary Discharge Rx Participant: No New Discharge Prescriptions: No Action Albuterol Nebulized [Ventolin Nebulized] 2.5 mg INHALATION DIRECTED Topiramate [Topamax] 25 mg PO DAILY Montelukast [Singulair] 10 mg PO HS Mv-Min/Folic/K1/Lycopen/Lutein [Centrum Silver Men Tablet] 1 tab PO DAILY Tamsulosin [Flomax] 0.4 mg PO DAILY metFORMIN HCL ER [Glucophage XR] 500 mg PO HS lisinopriL [Prinivil] 20 mg PO DAILY Finasteride [Proscar] 5 mg PO DAILY Aspirin EC [Ecotrin] 325 mg PO HS Empagliflozin [Jardiance] 10 mg PO DAILY Omeprazole 20 mg PO DAILY Spironolactone [Aldactone] 25 mg PO DAILY rOPINIRole HCL [Requip] 2 mg PO DAILY PRN PRN Reason: RESTLESS LEGS traZODone HCL [Desyrel] 50 mg PO HS PRN PRN Reason: SLEEP rOPINIRole HCL [Requip] 2 mg PO BID Zolpidem [Ambien] 5 mg PO HS Nitroglycerin Sl Tabs [Nitrostat] 0.4 mg SUBLINGUAL Q5M PRN PRN Reason: Chest Pain Atorvastatin [Lipitor] 40 mg PO HS Albuterol Inhaler [Ventolin Hfa Inhaler] 2 puff INHALATION RT-Q4H PRN PRN Reason: Shortness Of Breath Dabigatran Etexilate Mesylate [Dabigatran Etexilate] 150 mg PO BID Insulin Degludec [Tresiba Flextouch U-100 Pen] 20 units SQ DAILY Metoprolol Succinate [Metoprolol Succinate ER] 25 mg PO DAILY Discharge Medication List Albuterol Inhaler [Ventolin Hfa Inhaler] 2 puff INHALATION RT-Q4H PRN 02/01/23 [History] Albuterol Nebulized [Ventolin Nebulized] 2.5 mg INHALATION DIRECTED 02/01/23 [History] Aspirin EC [Ecotrin] 325 mg PO HS 02/01/23 [History] Atorvastatin [Lipitor] 40 mg PO HS 02/01/23 [History] Finasteride [Proscar] 5 mg PO DAILY 02/01/23 [History] Montelukast [Singulair] 10 mg PO HS 02/01/23 [History] Mv-Min/Folic/K1/Lycopen/Lutein [Centrum Silver Men Tablet] 1 tab PO DAILY 02/01/23 [History] Nitroglycerin Sl Tabs [Nitrostat] 0.4 mg SUBLINGUAL Q5M PRN 02/01/23 [History] Tamsulosin [Flomax] 0.4 mg PO DAILY 02/01/23 [History] Topiramate [Topamax] 25 mg PO DAILY 02/01/23 [History] Zolpidem [Ambien] 5 mg PO HS 02/01/23 [History] lisinopriL [Prinivil] 20 mg PO DAILY 02/01/23 [History] metFORMIN HCL ER [Glucophage XR] 500 mg PO HS 02/01/23 [History] rOPINIRole HCL [Requip] 2 mg PO BID 02/01/23 [History] rOPINIRole HCL [Requip] 2 mg PO DAILY PRN 02/01/23 [History] traZODone HCL [Desyrel] 50 mg PO HS PRN 02/01/23 [History] Dabigatran Etexilate Mesylate [Dabigatran Etexilate] 150 mg PO BID 04/16/25 [History] Empagliflozin [Jardiance] 10 mg PO DAILY 02/27/25 [History] Insulin Degludec [Tresiba Flextouch U-100 Pen] 20 units SQ DAILY 02/27/25 [History] Metoprolol Succinate [Metoprolol Succinate ER] 25 mg PO DAILY 02/27/25 [History] Omeprazole 20 mg PO DAILY 02/27/25 [History] Spironolactone [Aldactone] 25 mg PO DAILY 02/27/25 [History] Follow up Appointment(s)/Referral(s): Brendon Mitchell MD [Primary Care Provider] - 1-2 days
--- NOTE | 2025-03-01 12:15 | P.PN ---
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 Patient states that he was raking in unit falling and hitting the cement. He states he turned and is not sure what happened but does not think he was lightheaded or dizzy prior to the fall. He is not sure if he had a loss of consciousness. He states he has had increasing fatigue with shortness of breath this been worsening over the past couple of months. He also has chronic lower extremity edema. He states his chest is now sore after the fall. He follows with his grated cheese maker regularly and is scheduled for a stress test outpatient. Blood pressure 121/69, pulse documented in the 40s, by auscultation in the 70s, blood pressure 121/69. -EKG: Sinus rhythm at 74 bpm with PACs and PVCs. -Chest x-ray: Small left pleural effusion with bibasilar linear atelectasis. -Laboratory studies: WBC 6.5, hemoglobin 14.8, sodium 138, potassium 4.1, BUN 12, creatinine 0.68. Troponin negative x 1. proBNP 199. TSH 1.4. -Home cardiac medications: Aspirin 325 mg at bedtime, atorvastatin 40 mg at bedtime, Pradaxa 150 mg twice daily, Farxiga 5 mg daily, lisinopril 20 mg daily, metoprolol succinate 25 mg daily, Nitrostat as needed, spironolactone 25 mg daily, also on Jardiance 10 mg daily. 03/01 Patient continues to have chest soreness. He states he did not sleep last night. He states he had a coughing spell and that worsened his chest pain. He does state that he has a scheduled stress test and possibly other testing in which may be echocardiogram with his grated cheese maker. Blood pressure 129/80, heart rate 78, pulse ox 96% on room air. Reviewed telemetry and heart rate is running in the 60s. A1c 7.3. Lipid panel is pending. Carotid duplex reveals no hemodynamically significant internal carotid artery stenosis on either side. Echocardiogram reveals EF of 50 to 55%, mild concentric LVH, mild biatrial dilatation, mild aortic stenosis with mean gradient of 12 mmHg, mild aortic r egurgitation, mild tricuspid regurgitation, RVSP 37 mmHg, aortic root 3.[address] Mosquera discussed option of undergoing stress test here but patient has had breakfast and that it would be delayed until Tuesday. Patient has opted to continue with plan for outpatient stress testing with his grated cheese maker. Patient is scheduled for discharge home today. Physical examination: Gen: This is a 74-year-old male in no acute distress. VS: reviewed HEENT: Head is atraumatic, normocephalic. Pupils equal, round. Sclerae is anicteric. NECK: Supple. No JVD. LUNGS: Clear to auscultation. No wheezes or rhonchi. No intercostal retractions. HEART: Irregular rate and rhythm. ABDOMEN: Soft No tenderness. EXTREMITIES: Bilateral lower extremity edema. No calf tenderness. NEUROLOGICAL: Patient is awake, alert and oriented x3. Assessment: Bradycardia with frequent PACs and PVCs Fall with possible syncope Increased fatigue and shortness of breath worsening over the past couple months Chronic heart failure unknown EF Chronic lower extremity edema Chest soreness secondary to fall, musculoskeletal Paroxysmal atrial fibrillation currently in sinus rhythm History of coronary artery disease with previous stent done in 2020 Hypertension Hyperlipidemia Obesity with BMI of 33. Plan: Continue patient's home cardiac medications With the following changes Increase Farxiga to 10 mg daily Add aspirin 81 mg daily Telemetry monitoring Obtain 14-day Holter monitor prior to discharge No further cardiac workup at this time. Patient is cleared for discharge patient may follow-up with his primary grated cheese maker as scheduled for outpatient testing. Nurse practitioner note has been reviewed, I agree with documented findings and plan of care. Patient was seen and examined. Objective - Vital Signs Vital signs: Vital Signs Temp 97.8 F 03/01/25 07:29 Pulse 80 03/01/25 07:56 Resp 22 03/01/25 07:29 BP 129/80 03/01/25 07:29 Pulse Ox 96 03/01/25 07:29 FiO2 Intake & Output 02/28/25 03/01/25 03/01/25 18:59 06:59 18:59 Other: Voiding Method Toilet # Voids 1 2 # Bowel Movements 1 - Labs CBC & Chem 7: 03/01/25 05:09 03/01/25 05:09 Labs: Abnormal Lab Results - Last 24 Hours (Table) 02/28/25 02/28/25 02/28/25 Range/Units 12:36 12:37 19:49 RBC (4.40-5.60) X 10*6/uL MCV (80.0-97.0) FL MCH (27.0-32.0) pg POC Glucose (mg/dL) 137 H 156 H (70-110) mg/dL Hemoglobin A1c 7.3 H (<=6.0) % 03/01/25 03/01/25 Range/Units 05:09 07:03 RBC 4.08 L (4.40-5.60) X 10*6/uL MCV 100.0 H (80.0-97.0) FL MCH 33.3 H (27.0-32.0) pg POC Glucose (mg/dL) 114 H (70-110) mg/dL Hemoglobin A1c (<=6.0) %
[2025-03-01 12:21] LABS: Glucose,Whole Blood 109 mg/dL (70-110)
[2025-03-01 13:05] VITALS: BP 130/84; PULSE 73; RESP 20; TEMP 97.9
== END 2025-03-01 15:49 | disposition home health service (06) ==
LOC: EC 17:12 → 1SOBS 22:48 → 5NMEDONC 22:56
PROVIDERS: ADMIT Internal Medicine; ATTEND Internal Medicine
DX: S20.211A Contusion of right front wall of thorax, initial encounter (principal); S60.211A Contusion of right wrist, initial encounter; S80.01XA Contusion of right knee, initial encounter; W01.0XXA Fall on same level from slipping, tripping and stumbling without subsequent striking against object, initial encounter; I25.10 Atherosclerotic heart disease of native coronary artery without angina pectoris; R00.1 Bradycardia, unspecified; I49.3 Ventricular premature depolarization; I50.9 Heart failure, unspecified; I11.0 Hypertensive heart disease with heart failure; I48.0 Paroxysmal atrial fibrillation; I08.2 Rheumatic disorders of both aortic and tricuspid valves; I35.2 Nonrheumatic aortic (valve) stenosis with insufficiency; E78.2 Mixed hyperlipidemia; E66.9 Obesity, unspecified; E11.9 Type 2 diabetes mellitus without complications; G47.33 Obstructive sleep apnea (adult) (pediatric); J45.20 Mild intermittent asthma, uncomplicated; N40.0 Benign prostatic hyperplasia without lower urinary tract symptoms; G43.909 Migraine, unspecified, not intractable, without status migrainosus; G47.00 Insomnia, unspecified; G25.81 Restless legs syndrome; Z79.4 Long term (current) use of insulin; Z79.82 Long term (current) use of aspirin; Z79.84 Long term (current) use of oral hypoglycemic drugs; Z79.899 Other long term (current) drug therapy; Z95.5 Presence of coronary angioplasty implant and graft; Z96.651 Presence of right artificial knee joint; Z68.33 Body mass index [BMI] 33.0-33.9, adult
CPT/HCPCS: 96376 ×2; 96374; 96375; 99285; 36415; 94640 ×5; 93005; 93225; 97161; 97165; 83880; 80053 ×2; 84443; 82550 ×2; 84484; 85025 ×2; 85610; 85730; 83036; 73000; 73110; 73130; 73564; 71045; 93880; 72125; 70450 ×2; 71260; 74177; G0378 ×3; C8929; S0138 ×2; J2270; J1171 ×3; J2405; Q9957; Q9967; 93306